=== PATIENT | female | born 1940 | race Caucasian/White ===

== ENCOUNTER 2016-10-13 17:16 | Inpatient (IN) | payer BC, MEDICARE ==
[~2016-10-13] VITALS: Ht 162.6 cm; Wt 58.1 kg
--- NOTE | 2016-10-13 17:41 | RAD ---
CT CODE STROKE HEAD WO Clinical indications: CODE STROKE PT LNK 16:30 FOUND APPROX 30 MINUTES ON FLOOR L FACIAL DROOP SLURRED SPEECH DROOLING FOUND ON GROUND. LAST NORMAL WAS `1630. COMPARISON: June 28, 2012. Technique: Noncontrast axial cross sectional scanning of the head was performed. PQRS compliance Statement One or more of the following individualized dose reduction techniques were utilized for this study: 1. Automated exposure control 2. Adjustment of the mA and/or kV according to patient size 3. Use of iterative reconstruction technique Findings: No acute intracranial hemorrhage or midline shift or mass-effect or hydrocephalus or extra-axial fluid collection is seen. 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 There is a new cortical infarct of the posterior right frontal lobe near the occipital lobe junction. However this demonstrates a black wedge-shaped appearance and therefore is an old infarct that has occurred since the previous study in 2012. There are old infarcts of the posterior medial aspect of the left cerebellum and the posterior lateral left cerebellum. These were seen previously. There is some mild chronic periventricular white matter hypodensity consistent with chronic small vessel ischemic disease in this age group. There is an old lacunar infarct in the posterior aspect of the right basal ganglia. No skull fracture or pneumocephalus is seen. No opacification of the mastoid sinuses or the paranasal sinuses is seen. The maxillary sinuses are not completely seen in this study. Impression: No acute intracranial hemorrhage is seen. Old ischemic disease as discussed above. Note-this critical result was called to the emergency room physician at 5:37 PM on October 13, 2016. Electronically signed by: Tanner Vasquez MD (10/13/2016 5:39 PM)
[2016-10-13] MEDS ORDERED: LABETALOL 20 MG/4 ML DISP.SYRIN. IVP ONE (17:45)
[2016-10-13 18:01] LABS: BASO # 0.1 x10^3/uL (0.0-0.2); BASO % 1 % (0-3); EOS % 2 % (0-3); HEMATOCRIT 40.1 % (36.0-47.0); HEMOGLOBIN 13.5 g/dL (12.0-15.5); LYMPH # 2.4 x10^3/uL (1.0-4.8); LYMPH % 33 % (24-48); MEAN CORPUSCULAR HEMOGLOBIN 32 pg (25-35); MEAN CORPUSCULAR HGB CONC 34 g/dL (31-37); MEAN CORPUSCULAR VOLUME 95 fL (79-100); MONO % 9 % (0-9); NEUT % 55 % (31-73); PLATELET COUNT 234 x10^3/uL (140-400); RED BLOOD COUNT 4.23 x10^6/uL (3.50-5.40); RED CELL DISTRIBUTION WIDTH 13.7 % (11.5-14.5); WHITE BLOOD COUNT 7.2 x10^3/uL (4.0-11.0)
[2016-10-13 18:10] LABS: PROTHROMBIN TIME PATIENT 12.9 SEC (11.7-14.0)
[2016-10-13 18:12] LABS: CALCIUM 8.7 mg/dL (8.5-10.1); CREATININE 1.1 mg/dL (0.6-1.0); GFR 48.2; POTASSIUM 4.1 mmol/L (3.5-5.1)
[2016-10-13 18:18] LABS: ALBUMIN 3.6 g/dL (3.4-5.0); ALBUMIN/GLOBULIN RATIO 1.2 (1.0-1.7); TOTAL BILIRUBIN 0.4 mg/dL (0.2-1.0); TOTAL PROTEIN 6.7 g/dL (6.4-8.2)
--- NOTE | 2016-10-13 18:19 | PHYS DOC ---
Past Medical History Past Medical History: CAD, CVA Additional Past Medical Histor: cataracts, glaucoma Additional Past Surgical Histo: Heart Valve Alcohol Use: Occasionally Drug Use: None Adult General Chief Complaint Chief Complaint: NEURO SYMPTOMS/DEFICITS [facility] HPI Patient is a 76 year old female who presents with left sided weakness and slurred speech starting at 1630 today. She was awake and cooking when it occurred. Family states she was leaning to the left and needed assistance walking. She walks unassisted at baseline. Family noted she was well prior. She denies headache, vision changes, dizziness, chest pain, dyspnea, back pain, abdominal pain, nausea or vomiting, tingling, numbness, fever or chills. Review of Systems Review of Systems Constitutional: Denies fever or chills [] Eyes: Denies change in visual acuity, redness, or eye pain [] HENT: Denies nasal congestion or sore throat [] Respiratory: Denies cough or shortness of breath [] Cardiovascular: No additional information not addressed in HPI [] GI: Denies abdominal pain, nausea, vomiting, bloody stools or diarrhea [] : Denies dysuria or hematuria [] Musculoskeletal: Denies back pain or joint pain [] Integument: Denies rash or skin lesions [] Neurologic: Denies headache or sensory changes [] Endocrine: Denies polyuria or polydipsia [] Current Medications Current Medications Current Medications Medications (Trade) Dose Ordered Sig/[facility] Start Time Stop Time Status Last Admin Dose Admin Labetalol HCl (Normodyne) 10 mg 1X ONCE 10/13/16 17:45 10/13/16 17:46 DC 10/13/16 17:55 10 MG Allergies Allergies Allergies Coded Allergies Type Severity Reaction Last Updated Verified No Known Drug Allergies 10/13/16 No Physical Exam Physical Exam Constitutional: Well developed, well nourished, no acute distress, non-toxic appearance. [] HENT: Normocephalic, atraumatic, bilateral external ears normal, oropharynx moist, no oral exudates, nose normal. [] Eyes: PERRLA, EOMI. [] Neck: Normal range of motion, supple. [] Cardiovascular:Heart rate regular rhythm [] Lungs & Thorax: Bilateral breath sounds clear to auscultation [] Abdomen: Bowel sounds normal, soft, no tenderness. [] Skin: Warm, dry, no erythema, no rash. [] Back: Normal range of motion. [] Extremities: No tenderness, ROM intact, no edema. [] Neurologic: Alert and oriented X 3, normal sensory function, no focal deficits noted. Has significant weakness to left lower face with flat nasolabial fold, mild left leg drift. Otherwise intact cranial nerves and normal strength. No past pointing. [] Psychologic: Affect normal, judgement normal, mood normal. [] Current Patient Data Vital Signs Vital Signs Date Time Temp Pulse Resp B/P (MAP) Pulse Ox O2 Delivery O2 Flow Rate FiO2 10/13/16 18:12 62 18 160/75 (103) 97 10/13/16 17:31 98.2 Room Air 98.2 Lab Values Laboratory Tests Test 10/13/16 17:31 10/13/16 17:35 Glucose (Fingerstick) 100 mg/dL (70-99) H White Blood Count 7.2 x10^3/uL (4.0-11.0) Red Blood Count 4.23 x10^6/uL (3.50-5.40) Hemoglobin 13.5 g/dL (12.0-15.5) Hematocrit 40.1 % (36.0-47.0) Mean Corpuscular Volume 95 fL (79-100) Mean Corpuscular Hemoglobin 32 pg (25-35) Mean Corpuscular Hemoglobin Concent 34 g/dL (31-37) Red Cell Distribution Width 13.7 % (11.5-14.5) Platelet Count 234 x10^3/uL (140-400) Neutrophils (%) (Auto) 55 % (31-73) Lymphocytes (%) (Auto) 33 % (24-48) Monocytes (%) (Auto) 9 % (0-9) Eosinophils (%) (Auto) 2 % (0-3) Basophils (%) (Auto) 1 % (0-3) Neutrophils # (Auto) 4.0 x10^3uL (1.8-7.7) Lymphocytes # (Auto) 2.4 x10^3/uL (1.0-4.8) Monocytes # (Auto) 0.7 x10^3/uL (0.0-1.1) Eosinophils # (Auto) 0.2 x10^3/uL (0.0-0.7) Basophils # (Auto) 0.1 x10^3/uL (0.0-0.2) Sodium Level 139 mmol/L (136-145) Potassium Level 4.1 mmol/L (3.5-5.1) Chloride Level 103 mmol/L (98-107) Carbon Dioxide Level 29 mmol/L (21-32) Anion Gap 7 (6-14) Blood Urea Nitrogen 28 mg/dL (7-20) H Creatinine 1.1 mg/dL (0.6-1.0) H Estimated GFR (Cockcroft-Gault) 48.2 BUN/Creatinine Ratio 25 (6-20) H Glucose Level 104 mg/dL (70-99) H Calcium Level 8.7 mg/dL (8.5-10.1) Total Bilirubin 0.4 mg/dL (0.2-1.0) Aspartate Amino Transferase (AST) 22 U/L (15-37) Alanine Aminotransferase (ALT) 20 U/L (14-59) Alkaline Phosphatase 80 U/L (46-116) Total Protein 6.7 g/dL (6.4-8.2) Albumin 3.6 g/dL (3.4-5.0) Albumin/Globulin Ratio 1.2 (1.0-1.7) Laboratory Tests 10/13/16 17:35 Laboratory Tests 10/13/16 17:35 EKG Interpretation Time: EKG as interpreted by me as normal sinus rhythm, rate 68, no ST-T changes, normal intervals, no ectopy Radiology/Procedures Radiology/Procedures CT head without contrast Impression: No acute intracranial hemorrhage is seen. Old ischemic disease as discussed above. Note-this critical result was called to the emergency room physician at 5:37 PM on October 13, 2016. Electronically signed by: Tanner Vasquez MD (10/13/2016 5:39 PM) Course & Med Decision Making Course & Med Decision Making Pertinent Labs and Imaging studies reviewed. (See chart for details) NIHSS of 3 (2 for left facial droop, 1 for left leg drift). Imaging and laboratory evaluation are nonacute. Her symptoms are beginning to improve, with improvement in nasolabial fold prominence and minimal drift of left lower extremity. She has no new symptoms. She is ambulatory with steady gait and feels normal. Her family states that her gait appears normal as well. Discussed case with Dr. Ayon, who recommends against TPA due to improving symptoms. She passed swallow study. She will be admitted for further workup. Discussed case with Dr. Guevara, who will admit. Bubba Disclaimer Dragon Disclaimer This electronic medical record was generated, in whole or in part, using a voice recognition dictation system. Departure Departure Impression: Primary Impression: Acute left-sided weakness Disposition: ADMITTED INPATIENT Condition: STABLE Юлия PEREA MD Oct 13, 2016 18:19
[2016-10-13] MEDS ORDERED: ACETAMINOPHEN 325 MG TABLET. PO PRN ×2 (18:45→19:00)
[2016-10-13] MEDS ORDERED: LABETALOL 20 MG/4 ML DISP.SYRIN. IVP PRN (18:45)
[2016-10-13] MEDS ORDERED: ONDANSETRON PF 4 MG/2 ML VIAL. IV PRN ×2 (18:45→19:00)
[2016-10-13] MEDS ORDERED: ACETAMINOPHEN 650 MG SUPP.RECT. PR PRN (19:00)
[2016-10-13] MEDS ORDERED: LABETALOL 20 MG/4 ML DISP.SYRIN. IV PRN (19:00)
[2016-10-13] MEDS ORDERED: 0.9 % SODIUM CHLORIDE 10 ML DISP.SYRIN. IV PRN (19:00)
[2016-10-13] MEDS ORDERED: ASPIRIN 325 MG TABLET PO ONE (19:00)
[2016-10-13] MEDS ORDERED: ENOXAPARIN 40 MG/0.4 ML SYRINGE. SQ SCH (20:00)
[2016-10-13 20:49] VITALS: BP 175/84
[2016-10-13] MEDS: SIMVASTATIN 40 MG TABLET. PO SCH (21:40)
[2016-10-13] MEDS: IV NORMAL SALINE 1000ML BAG 1,000 ML IV SCH (21:40)
[2016-10-13] MEDS ORDERED: ATEN25TA PO (22:21)
[2016-10-13] MEDS ORDERED: BROM3DRO OS (22:21)
[2016-10-13] MEDS ORDERED: CIPROFLOXACIN OS (22:21)
[2016-10-13] MEDS ORDERED: PRED5DRO16 OS (22:21)
[2016-10-13 23:24] VITALS: BP 170/64
--- NOTE | 2016-10-13 23:36 | PDOC1 ---
History and Physical Current Problem List Problem List Problems Medical Problems: (1) Acute left-sided weakness Status: Acute Current Medications Current Medications Current Medications Medications (Trade) Dose Ordered Sig/[facility] Start Time Stop Time Status Last Admin Dose Admin Acetaminophen (Acetaminophen Supp) 650 mg PRN Q6HRS PRN 10/13/16 19:00 Acetaminophen (Tylenol) 650 mg PRN Q6HRS PRN 10/13/16 19:00 Aspirin (Darby Aspirin) 325 mg 1X ONCE 10/13/16 19:00 10/13/16 19:01 DC 10/13/16 19:00 325 MG Aspirin (Ecotrin) 325 mg [id number] 10/14/16 08:00 Enoxaparin Sodium (Lovenox 40mg Syringe) 40 mg Q24H 10/13/16 20:00 10/13/16 21:40 40 MG Labetalol HCl (Normodyne) 10 mg PRN Q10MIN PRN 10/13/16 19:00 Ondansetron HCl (Zofran) 4 mg PRN Q6HRS PRN 10/13/16 19:00 Simvastatin (Zocor) 40 mg QHS 10/13/16 21:00 10/13/16 21:40 40 MG Sodium Chloride 1,000 ml @ 100 mls/hr Q10H 10/13/16 18:57 10/13/16 21:40 100 MLS/HR Sodium Chloride (Normal Saline Flush) 3 ml QSHIFT PRN 10/13/16 19:00 Allergies Allergies Allergies Coded Allergies Type Severity Reaction Last Updated Verified No Known Drug Allergies 10/13/16 No ROS Review of System CONSTITUTIONAL: No fever or chills EYES: No recent changes SKIN: No rash or itching CARDIOVASCULAR: No chest pain, syncope, palpitations, or edema RESPIRATORY: No SOB or cough GASTROINTESTINAL: No nausea, vomiting or abdominal pain NEUROLOGICAL: No headaches or weakness ENDOCRINE: No cold or heat intolerance GENITOURINARY: No urgency or frequency of urination MUSCULOSKELETAL: No back pain or joint pain LYMPHATICS: No enlarged lymph nodes PSYCHIATRIC: No anxiety or depression Physical Exam Physical Exam GEN.: No apparent distress. Alert and oriented. HEENT: Head is normocephalic, atraumatic NECK: Supple. LUNGS: Clear to auscultation. HEART: RRR, S1, S2 present. Peripheral pulses intact ABDOMEN: Soft, nontender. Positive bowel sounds. EXTREMITIES: Without any cyanosis. NEUROLOGIC: Normal speech, normal tone PSYCHIATRIC: Normal affect, normal mood. SKIN: No ulcerations Vitals Vitals Vital Signs Date Time Temp Pulse Resp B/P (MAP) Pulse Ox O2 Delivery O2 Flow Rate FiO2 10/13/16 23:24 98.3 67 18 170/64 (99) 98 Room Air 98.3 Labs Labs Laboratory Tests Test 10/13/16 17:31 10/13/16 17:35 Glucose (Fingerstick) 100 mg/dL (70-99) White Blood Count 7.2 x10^3/uL (4.0-11.0) Red Blood Count 4.23 x10^6/uL (3.50-5.40) Hemoglobin 13.5 g/dL (12.0-15.5) Hematocrit 40.1 % (36.0-47.0) Mean Corpuscular Volume 95 fL (79-100) Mean Corpuscular Hemoglobin 32 pg (25-35) Mean Corpuscular Hemoglobin Concent 34 g/dL (31-37) Red Cell Distribution Width 13.7 % (11.5-14.5) Platelet Count 234 x10^3/uL (140-400) Neutrophils (%) (Auto) 55 % (31-73) Lymphocytes (%) (Auto) 33 % (24-48) Monocytes (%) (Auto) 9 % (0-9) Eosinophils (%) (Auto) 2 % (0-3) Basophils (%) (Auto) 1 % (0-3) Neutrophils # (Auto) 4.0 x10^3uL (1.8-7.7) Lymphocytes # (Auto) 2.4 x10^3/uL (1.0-4.8) Monocytes # (Auto) 0.7 x10^3/uL (0.0-1.1) Eosinophils # (Auto) 0.2 x10^3/uL (0.0-0.7) Basophils # (Auto) 0.1 x10^3/uL (0.0-0.2) Prothrombin Time 12.9 SEC (11.7-14.0) Prothromb Time International Ratio 1.0 (0.8-1.1) Activated Partial Thromboplast Time 24 SEC (24-38) Sodium Level 139 mmol/L (136-145) Potassium Level 4.1 mmol/L (3.5-5.1) Chloride Level 103 mmol/L (98-107) Carbon Dioxide Level 29 mmol/L (21-32) Anion Gap 7 (6-14) Blood Urea Nitrogen 28 mg/dL (7-20) Creatinine 1.1 mg/dL (0.6-1.0) Estimated GFR (Cockcroft-Gault) 48.2 BUN/Creatinine Ratio 25 (6-20) Glucose Level 104 mg/dL (70-99) Calcium Level 8.7 mg/dL (8.5-10.1) Total Bilirubin 0.4 mg/dL (0.2-1.0) Aspartate Amino Transf (AST/SGOT) 22 U/L (15-37) Alanine Aminotransferase (ALT/SGPT) 20 U/L (14-59) Alkaline Phosphatase 80 U/L (46-116) Total Protein 6.7 g/dL (6.4-8.2) Albumin 3.6 g/dL (3.4-5.0) Albumin/Globulin Ratio 1.2 (1.0-1.7) Laboratory Tests Test 10/13/16 17:31 10/13/16 17:35 Glucose (Fingerstick) 100 mg/dL (70-99) White Blood Count 7.2 x10^3/uL (4.0-11.0) Red Blood Count 4.23 x10^6/uL (3.50-5.40) Hemoglobin 13.5 g/dL (12.0-15.5) Hematocrit 40.1 % (36.0-47.0) Mean Corpuscular Volume 95 fL (79-100) Mean Corpuscular Hemoglobin 32 pg (25-35) Mean Corpuscular Hemoglobin Concent 34 g/dL (31-37) Red Cell Distribution Width 13.7 % (11.5-14.5) Platelet Count 234 x10^3/uL (140-400) Neutrophils (%) (Auto) 55 % (31-73) Lymphocytes (%) (Auto) 33 % (24-48) Monocytes (%) (Auto) 9 % (0-9) Eosinophils (%) (Auto) 2 % (0-3) Basophils (%) (Auto) 1 % (0-3) Neutrophils # (Auto) 4.0 x10^3uL (1.8-7.7) Lymphocytes # (Auto) 2.4 x10^3/uL (1.0-4.8) Monocytes # (Auto) 0.7 x10^3/uL (0.0-1.1) Eosinophils # (Auto) 0.2 x10^3/uL (0.0-0.7) Basophils # (Auto) 0.1 x10^3/uL (0.0-0.2) Prothrombin Time 12.9 SEC (11.7-14.0) Prothromb Time International Ratio 1.0 (0.8-1.1) Activated Partial Thromboplast Time 24 SEC (24-38) Sodium Level 139 mmol/L (136-145) Potassium Level 4.1 mmol/L (3.5-5.1) Chloride Level 103 mmol/L (98-107) Carbon Dioxide Level 29 mmol/L (21-32) Anion Gap 7 (6-14) Blood Urea Nitrogen 28 mg/dL (7-20) Creatinine 1.1 mg/dL (0.6-1.0) Estimated GFR (Cockcroft-Gault) 48.2 BUN/Creatinine Ratio 25 (6-20) Glucose Level 104 mg/dL (70-99) Calcium Level 8.7 mg/dL (8.5-10.1) Total Bilirubin 0.4 mg/dL (0.2-1.0) Aspartate Amino Transf (AST/SGOT) 22 U/L (15-37) Alanine Aminotransferase (ALT/SGPT) 20 U/L (14-59) Alkaline Phosphatase 80 U/L (46-116) Total Protein 6.7 g/dL (6.4-8.2) Albumin 3.6 g/dL (3.4-5.0) Albumin/Globulin Ratio 1.2 (1.0-1.7) VTE Prophylaxis Ordered VTE Prophylaxis Devices: Yes VTE Pharmacological Prophylaxi: Yes MONICO CASTAÑEDA MD Oct 13, 2016 23:36
[2016-10-14] VITALS (7 sets, daily range): BP systolic 74–202; BP diastolic 74–95
--- NOTE | 2016-10-14 00:27 | HP ---
ADMIT DATE: 10/13/2016 CHIEF COMPLAINT: Left-sided facial droop and weakness. HISTORY OF PRESENT ILLNESS: This is a 76-year-old female patient with prior history of TIA and CVA, presented to the ER with complaints of left-sided facial droop and weakness. The patient's daughter noted that she is having drooping of her left sided face with weakness and difficulty to walk. The patient leaning towards left side. Symptoms started 1630 hours today while she was cooking. She was requiring some assistance to walk. Family were concerned about stroke and brought her to the hospital. As per the ER, the patient does not make any criteria as her symptoms completely resolved at the time of her arrival to the Emergency Room. At the time of my examination, the patient did not have any facial weakness. I saw her in the ER. No weakness noted. No neurological deficits seen. PAST MEDICAL HISTORY: CVA, hypertension, heart valve surgery, cataract, glaucoma, coronary artery disease. PERSONAL HISTORY: No smoking, no alcohol, no drug abuse. FAMILY HISTORY: Heart diseases. ALLERGIES: NKDA. REVIEW OF SYSTEMS: CONSTITUTIONAL: No fever or chills. EYES: No recent vision changes. SKIN: No rash or itching. CARDIOVASCULAR: No chest pain, syncope, palpitations or edema. RESPIRATORY: No shortness of breath, cough. GASTROINTESTINAL: No nausea, vomiting, diarrhea or abdominal pain. NEUROLOGICAL: No headache, paralysis. ENDOCRINOLOGIC: No cold or heat intolerance. GENITOURINARY: No burning with urination, no urgency. MUSCULOSKELETAL: No back pain or joint pain. LYMPHATICS: No enlarged nodes. PSYCHIATRIC: No anxiety or depression. PHYSICAL EXAM: GENERAL: No apparent distress. HEENT: Head normocephalic, atraumatic. NECK: Supple. LUNGS: Clear to auscultation. HEART: Regular rate and rhythm; S1, S2 present; pulses intact. ABDOMEN: Soft and positive bowel sounds. EXTREMITIES: No cyanosis or edema. NEUROLOGIC: Normal speech and normal tone; alert and oriented. PSYCHIATRIC: Normal affect, normal mood. SKIN: No ulceration. LABORATORY FINDINGS: CBC within normal limits. Chemistry: Creatinine is 1.1, BUN is 28, sodium 139, potassium 4.1, chloride ____, bicarb 29. IMAGING STUDIES: CT of the head, no acute process seen. Old ischemic disease is seen. ASSESSMENT: 1. Cerebrovascular accident symptoms. 2. Hypertension. 3. Prior history of cerebrovascular accident. 4. Coronary artery disease. PLAN: 1. The patient has been admitted to the hospital for further workup and Neurology has been consulted. She will get an echocardiogram and carotid Doppler with MRI. 2. Physical therapy, occupational therapy and frequent Neurochecks as per protocol. 3. Continue monitor on telemetry. 4. Supportive care. 5. Speech therapy. 6. Monitor labs in a.m. MONICO CASTAÑEDA MD DR: NAILA/chari JOB#: [id number] / [id number] SALLIE
--- NOTE | 2016-10-14 04:25 | ACF ---
Admission Forms Criteria TELEMETRY CARE Telemetry Admission Guidelines (Place 'X' for any and all applicable criteria): Admission to telemetry [A] may be indicated for ANY ONE of the following(1)(2)(3 )(4)(5): [ ]I. Cardiac disease, including ANY ONE of the following (9)(10)(11)(12)(13 ): [ ]a) Postacute ID [ ]b) Low-risk patients with ST-segment elevation ID who have undergone successful percutaneous coronary intervention [ ]c) Unstable angina [ ]d) Suspected ID (until it is ruled out) [ ]e) Post cardiac surgery (first 48 to 72 hours unless complications occur) [ ]f) Acute arrhythmias (including significant tachycardia or bradycardia) [B] [ ]g) Firing of an implantable cardioverter defibrillator [C] [ ]h) Suspected pacemaker or implantable cardioverter defibrillator malfunction (10) [ ]i) New administration or adjustment of an antiarrhythmic drug [D ] [ ]j) Child admitted for acute congestive heart failure [ ]j) Long QT syndrome [ ]k) Advanced heart block (eg, second-degree Mobitz type II, third- degree heart block) [ ]l) Acute myocarditis or pericarditis [ ]m) Short-term (ambulatory or inpatient) monitoring after a cardiac procedure as indicated by ANY ONE of the following [E]: [ ]i) Electrophysiologic studies [ ]ii) Percutaneous coronary intervention with stent placement [ ]iii) Pacemaker placement with cardiac conduction defect [ ]iv) Implantable cardiac defibrillator placement [ ]II. Drug overdose or poisoning with substance that causes arrhythmias or QT prolongation (eg, phenothiazines, sympathomimetic agents, cyclic antidepressants, digitalis, antiarrhythmic drugs)(15) [ ]III. Short-term (ambulatory or inpatient) monitoring after therapeutic or diagnostic procedure requiring conscious sedation or anesthesia (eg, endoscopy, elective cardioversion) [X]IV. Acute cerebrovascular even[F](18) [ ]V. Massive blood transfusion (eg, at least 10 units of packed red blood cells in 24 hours) [ ]. Variceal bleeding after endoscopy, sclerotherapy, or IV vasopressin [ ]VII. Uncorrected electrolyte abnormalities associated with an increased risk of dangerous arrhythmia [G]; examples include [ ]a) Hyperkalemia with attributable ECG changes [ ]b) Potassium greater than 6.5 mmol/L (mEq/L) in a patient without history of chronic renal disease [ ]c) Prolonged QT attributed to hypokalemia, hypomagnesemia, or hypocalcemia [ ]VIII.Unexplained syncope or other neurologic event suspected of being due to arrhythmia due to a finding that increases risk; examples include(19)(20)(21): [ ]a) High-risk ECG findings (eg, bifascicular block, bradycardia, abnormal QT interval, ventricular pre- excitation) [ ]b) History of previous syncope due to arrhythmia [ ]c) Abnormal ventricular function (eg, reduced ejection fraction ) [ ]d) Exertional or supine syncope [ ]e) Concerning syncope characteristics (eg, sudden loss of consciousness without prodrome) [ ]f) Family history of sudden [ ]g) Use of arrhythmogenic medication [ ]h) Suspected cardiac ischemia [ ]i) Known channelopathy (eg, long QT syndrome, Brugada syndrome, or catecholaminergic paroxysmal ventricular tachycardia) [ ]j) Known structural heart disease (eg, hypertrophic cardiomyopathy , severe valvular disease) [ ]k) Palpitations preceding syncope The original [employer] content created by [employer] has been revised. The portions of the content which have been revised are identified through the use of italic text or in bold, and [facility] has neither reviewed nor approved the modified material. All other unmodified content is copyright [employer]. Please see references footnoted in the original [employer] edition 2016 Admission Criteria Met?: Yes SAMANTHA HERNANDEZ Oct 14, 2016 04:25
[2016-10-14] MEDS: DEXAMETHASONE 0.1% OPHTH SOLUTION 5ML BOTTLE. OS SCH ×4 (05:54→07:31)
[2016-10-14] MEDS: IV NORMAL SALINE 1000ML BAG 1,000 ML IV SCH ×2 (05:54→15:30)
--- NOTE | 2016-10-14 06:39 | EKG ---
[facility] [address] [place] [address] Test Date: 2016-10-13 Test Time: 17:39:18 Pat Name: LARISSA ZAIDI Department: Room: 4 1 Gender: F Project Development Engineer: : [id number] Requested By: Юлия PEREA Order Number: [id number] Reading MD: Nadja Rice Measurements Intervals [place] Rate: 68 P: -56 WI: 126 QRS: -25 QRSD: 90 T: 43 QT: 392 QTc: 417 Interpretive Statements SINUS RHYTHM LEFTWARD AXIS INCOMPLETE RIGHT BUNDLE BRANCH BLOCK QRS(T) CONTOUR ABNORMALITY CONSIDER ANTEROSEPTAL MYOCARDIAL DAMAGE Electronically Signed On 10-15-2016 19:10:01 CDT by Nadja Rice
[2016-10-14] MEDS: KETOROLAC TROMETHAMINE 0.5% OPHTH SOLUTION 3ML BOTTLE. OS SCH ×3 (07:24→07:31)
[2016-10-14] MEDS: ATENOLOL 25 MG TABLET. PO SCH (07:27)
[2016-10-14] MEDS ORDERED: ASPIRIN ENTERIC COATED 325 MG TABLET.DR. PO SCH (08:00)
[2016-10-14] MEDS ORDERED: LATA2.5D3 EACHEYE (09:17)
[2016-10-14] MEDS ORDERED: DORZ10DR7 EACHEYE (09:18)
[2016-10-14] MEDS: DORZOLAMIDE/TIMOLOL 2%/0.5% OPHTH SOLUTION 10ML BOTTLE. OU SCH ×2 (09:23→19:43)
--- NOTE | 2016-10-14 10:55 | PDOC2 ---
NEUROLOGY CONSULT Date of Admission Date of Admission DATE: 10/14/16 TIME: 10:48 Reason for Consult Reason for Consult: Stroke symptoms Referring Physician Referring Physician: Dr. Joyner Source Source: Caregiver, Chart review, Patient History of Present Illness History of Present Illness The patient is a 76-year-old right-hand female whose daughter noticed having left him in paresis and dysarthria yesterday at about 5 PM. I discussed the case with Dr. Xiong and by the time the patient was in the emergency department , symptoms were improving. Gait was normal. Therefore, we decided to hold off on tissue plasminogen activator. The patient has a history of stroke 4 years ago from which she made a full recovery. It happened after cardiac valve surgery. She feels fine this morning. Past Medical History Cardiovascular: CAD, Other ( cardiac valve disease) CENTRAL NERVOUS SYSTEM: CVA ENT: Other (Glaucoma) Past Surgical History Past Surgical History: Cataract Removal, Other ( mitral valve repair) Family History Family History: Cancer Social History Social History , no tobacco or alcohol Current Medications Current Medications Current Medications Labetalol HCl (Normodyne) 10 mg 1X ONCE IVP Last administered on 10/13/16 17: 55; Start 10/13/16 at 17:45; Stop 10/13/16 at 17:46; Status DC Aspirin ([place] Aspirin) 325 mg 1X ONCE PO Last administered on 10/13/16 19:00 ; Start 10/13/16 at 19:00; Stop 10/13/16 at 19:01; Status DC Ondansetron HCl (Zofran) 4 mg PRN Q8HRS PRN IV NAUSEA/VOMITING; Start 10/13/16 at 18:45; Stop 10/14/16 at 18:44 Acetaminophen (Tylenol) 650 mg PRN Q4HRS PRN PO FEVER; Start 10/13/16 at 18:45; Stop 10/14/16 at 18:44 Labetalol HCl (Normodyne) 10 mg PRN Q1HR PRN IVP HTN Last administered on 19:14; Start 10/13/16 at 18:45 Sodium Chloride (Normal Saline Flush) 3 ml QSHIFT PRN IV AFTER MEDS AND BLOOD DRAWS; Start 10/13/16 at 19:00 Sodium Chloride 1,000 ml @ 100 mls/hr Q10H IV Last administered on 10/14/16 05 :54; Start 10/13/16 at 18:57 Aspirin (Ecotrin) 325 mg DAILYWBKFT PO Last administered on 10/14/16 07:23; Start 10/14/16 at 08:00 Simvastatin (Zocor) 40 mg QHS PO Last administered on 10/13/16 21:40; Start 10/13/16 at 21:00 Labetalol HCl (Normodyne) 10 mg PRN Q10MIN PRN IV HYPERTENSION, SEE COMMENTS; Start 10/13/16 at 19:00 Acetaminophen (Tylenol) 650 mg PRN Q6HRS PRN PO FEVER; Start 10/13/16 at 19:00 Acetaminophen (Acetaminophen Supp) 650 mg PRN Q6HRS PRN OR FEVER; Start at 19:00 Ondansetron HCl (Zofran) 4 mg PRN Q6HRS PRN IV NAUSEA/VOMITING; Start 10/13/16 at 19:00 Enoxaparin Sodium (Lovenox 40mg Syringe) 40 mg Q24H SQ Last administered on 10/13 21:40; Start 10/13/16 at 20:00 Atenolol (Tenormin) 25 mg DAILY PO ; Start 10/14/16 at 09:00 Ketorolac Tromethamine (Acular) 1 drop QID OS Last administered on 10/14/16 07: 24; Start 10/14/16 at 09:00; Stop 10/14/16 at 09:15; Status DC Dexamethasone (Maxidex) 1 drop Q4HRS W/A OS Last administered on 10/14/16 07: 23; Start 10/14/16 at 06:00; Stop 10/14/16 at 09:14; Status DC Dorzolamide/ Timolol (Cosopt) 1 drop BID OU ; Start 10/14/16 at 10:00 Latanoprost (Xalatan) 1 drop QHS OU ; Start 10/14/16 at 21:00 Active Scripts Active Reported Dorzolamide-Timolol Eye Drops (Dorzolamide Hcl/Timolol Maleat) 10 Ml Drops 1 Drop EACHEYE BID Latanoprost 2.5 Ml Drops 1 Drop EACHEYE QHS Atenolol 25 Mg Tablet 25 Mg PO DAILY Allergies Allergies: Coded Allergies: No Known Drug Allergies (Unverified , 10/13/16) ROS Review of System Negative for fevers, chills, weight loss, shortness of breath, chest pain, indigestion, hematochezia, melena, dysuria. Full 14-point review systems is negative. Physical Exam Physical Examination PHYSICAL EXAMINATION: Vital signs: see above. General appearance is normal and in no acute distress. HEENT: Normocephalic and nontraumatic. Eyes, nose, ears, and throat are unremarkable. Neck is supple. No lymphadenopathy. No bruits are heard over the carotid artery. No crepitus. Cardiovascular: S1, S2, regular rate and rhythm. NEUROLOGICAL EXAMINATION: Mental Status Examination: Alert. Oriented to time, place, and person. Answers questions and follows commends. Pupils are equal round and reactive to light and accommodation. Funduscopic exam: No papilledema. Extraocular movements are intact. Visual field exam shows no defect on the direct confrontation. No motor or sensory deficits on the facial exam. Uvula in the midline and the soft palate elevated symmetrically. No deviation of the tongue to any direction. Gross hearing is normal. Shoulder shrug normal. Muscle tone is normal. Muscle strength is 5. Deep tendon reflexes are 2+ all around. Plantar reflex is with flexion response bilaterally. Reilkz-rh-gazp test performance is accurate. Tandem walk test is accurate. Alternative movements are accurate. Romberg test is negative. Gait is normal. Sensory exam shows no deficits. No cerebellar signs are elicited. Vitals VITALS Vital Signs Date Time Temp Pulse Resp B/P (MAP) Pulse Ox O2 Delivery O2 Flow Rate FiO2 10/14/16 08:00 Room Air 10/14/16 07:00 97.8 69 18 185/89 (121) 100 97.8 Labs Labs Laboratory Tests Test 10/13/16 17:31 10/13/16 17:35 10/14/16 02:50 Glucose (Fingerstick) 100 mg/dL (70-99) White Blood Count 7.2 x10^3/uL (4.0-11.0) Red Blood Count 4.23 x10^6/uL (3.50-5.40) Hemoglobin 13.5 g/dL (12.0-15.5) Hematocrit 40.1 % (36.0-47.0) Mean Corpuscular Volume 95 fL (79-100) Mean Corpuscular Hemoglobin 32 pg (25-35) Mean Corpuscular Hemoglobin Concent 34 g/dL (31-37) Red Cell Distribution Width 13.7 % (11.5-14.5) Platelet Count 234 x10^3/uL (140-400) Neutrophils (%) (Auto) 55 % (31-73) Lymphocytes (%) (Auto) 33 % (24-48) Monocytes (%) (Auto) 9 % (0-9) Eosinophils (%) (Auto) 2 % (0-3) Basophils (%) (Auto) 1 % (0-3) Neutrophils # (Auto) 4.0 x10^3uL (1.8-7.7) Lymphocytes # (Auto) 2.4 x10^3/uL (1.0-4.8) Monocytes # (Auto) 0.7 x10^3/uL (0.0-1.1) Eosinophils # (Auto) 0.2 x10^3/uL (0.0-0.7) Basophils # (Auto) 0.1 x10^3/uL (0.0-0.2) Prothrombin Time 12.9 SEC (11.7-14.0) Prothromb Time International Ratio 1.0 (0.8-1.1) Activated Partial Thromboplast Time 24 SEC (24-38) Sodium Level 139 mmol/L (136-145) Potassium Level 4.1 mmol/L (3.5-5.1) Chloride Level 103 mmol/L (98-107) Carbon Dioxide Level 29 mmol/L (21-32) Anion Gap 7 (6-14) Blood Urea Nitrogen 28 mg/dL (7-20) Creatinine 1.1 mg/dL (0.6-1.0) Estimated GFR (Cockcroft-Gault) 48.2 BUN/Creatinine Ratio 25 (6-20) Glucose Level 104 mg/dL (70-99) Calcium Level 8.7 mg/dL (8.5-10.1) Total Bilirubin 0.4 mg/dL (0.2-1.0) Aspartate Amino Transf (AST/SGOT) 22 U/L (15-37) Alanine Aminotransferase (ALT/SGPT) 20 U/L (14-59) Alkaline Phosphatase 80 U/L (46-116) Total Protein 6.7 g/dL (6.4-8.2) Albumin 3.6 g/dL (3.4-5.0) Albumin/Globulin Ratio 1.2 (1.0-1.7) Triglycerides Level 45 mg/dL (0-150) Cholesterol Level 220 mg/dL (0-200) LDL Cholesterol, Calculated 138 mg/dL (0-100) VLDL Cholesterol, Calculated 9 mg/dL (0-40) Non-HDL Cholesterol Calculated 147 mg/dL (0-129) HDL Cholesterol 73 mg/dL (40-60) Cholesterol/HDL Ratio 3.0 Laboratory Tests Test 10/13/16 17:31 10/13/16 17:35 10/14/16 02:50 Glucose (Fingerstick) 100 mg/dL (70-99) White Blood Count 7.2 x10^3/uL (4.0-11.0) Red Blood Count 4.23 x10^6/uL (3.50-5.40) Hemoglobin 13.5 g/dL (12.0-15.5) Hematocrit 40.1 % (36.0-47.0) Mean Corpuscular Volume 95 fL (79-100) Mean Corpuscular Hemoglobin 32 pg (25-35) Mean Corpuscular Hemoglobin Concent 34 g/dL (31-37) Red Cell Distribution Width 13.7 % (11.5-14.5) Platelet Count 234 x10^3/uL (140-400) Neutrophils (%) (Auto) 55 % (31-73) Lymphocytes (%) (Auto) 33 % (24-48) Monocytes (%) (Auto) 9 % (0-9) Eosinophils (%) (Auto) 2 % (0-3) Basophils (%) (Auto) 1 % (0-3) Neutrophils # (Auto) 4.0 x10^3uL (1.8-7.7) Lymphocytes # (Auto) 2.4 x10^3/uL (1.0-4.8) Monocytes # (Auto) 0.7 x10^3/uL (0.0-1.1) Eosinophils # (Auto) 0.2 x10^3/uL (0.0-0.7) Basophils # (Auto) 0.1 x10^3/uL (0.0-0.2) Prothrombin Time 12.9 SEC (11.7-14.0) Prothromb Time International Ratio 1.0 (0.8-1.1) Activated Partial Thromboplast Time 24 SEC (24-38) Sodium Level 139 mmol/L (136-145) Potassium Level 4.1 mmol/L (3.5-5.1) Chloride Level 103 mmol/L (98-107) Carbon Dioxide Level 29 mmol/L (21-32) Anion Gap 7 (6-14) Blood Urea Nitrogen 28 mg/dL (7-20) Creatinine 1.1 mg/dL (0.6-1.0) Estimated GFR (Cockcroft-Gault) 48.2 BUN/Creatinine Ratio 25 (6-20) Glucose Level 104 mg/dL (70-99) Calcium Level 8.7 mg/dL (8.5-10.1) Total Bilirubin 0.4 mg/dL (0.2-1.0) Aspartate Amino Transf (AST/SGOT) 22 U/L (15-37) Alanine Aminotransferase (ALT/SGPT) 20 U/L (14-59) Alkaline Phosphatase 80 U/L (46-116) Total Protein 6.7 g/dL (6.4-8.2) Albumin 3.6 g/dL (3.4-5.0) Albumin/Globulin Ratio 1.2 (1.0-1.7) Triglycerides Level 45 mg/dL (0-150) Cholesterol Level 220 mg/dL (0-200) LDL Cholesterol, Calculated 138 mg/dL (0-100) VLDL Cholesterol, Calculated 9 mg/dL (0-40) Non-HDL Cholesterol Calculated 147 mg/dL (0-129) HDL Cholesterol 73 mg/dL (40-60) Cholesterol/HDL Ratio 3.0 Images Images MRI brain: report pending, but there is a right frontal acute infarct CT head: Findings: No acute intracranial hemorrhage or midline shift or mass-effect or hydrocephalus or extra-axial fluid collection is seen. 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 There is a new cortical infarct of the posterior right frontal lobe near the occipital lobe junction. However this demonstrates a black wedge-shaped appearance and therefore is an old infarct that has occurred since the previous study in 2012. There are old infarcts of the posterior medial aspect of the left cerebellum and the posterior lateral left cerebellum. These were seen previously. There is some mild chronic periventricular white matter hypodensity consistent with chronic small vessel ischemic disease in this age group. There is an old lacunar infarct in the posterior aspect of the right basal ganglia. No skull fracture or pneumocephalus is seen. No opacification of the mastoid sinuses or the paranasal sinuses is seen. The maxillary sinuses are not completely seen in this study. Impression: No acute intracranial hemorrhage is seen. Old ischemic disease as discussed above. Echocardiogram and carotid Doppler's pending Assessment/Plan Assessment/Plan Impression: Right frontal infarct, suspected cardiac embolism. TPA was held because of rapid resolution of symptoms and indeed she has a normal exam now. Recommendations: Await echocardiogram, cardiology consultation Consideration for Eliquis or similar agent Rehabilitation screening Still may be able to go home later today. Discussed with family Thank you for letting me help with the patient's care. PRANEETH HIGH MD Oct 14, 2016 10:55
--- NOTE | 2016-10-14 11:22 | CARD ---
APPROVED REPORT EXAM: Two-dimensional and M-mode echocardiogram with Doppler and color Doppler. Other Information Quality : Good INDICATION CVA/TIA 2D DIMENSIONS RVDd2.7 (2.9-3.5cm)Left Atrium(2D)4.5 (1.6-4.0cm) IVSd0.8 (0.7-1.1cm)Aortic Root(2D)2.5 (2.0-3.7cm) LVDd5.2 (3.9-5.9cm)LVOT Diameter2.0 (1.8-2.4cm) PWd0.8 (0.7-1.1cm)LVDs3.7 (2.5-4.0cm) FS (%) 29.5 %SV72.8 ml LVEF(%)56.0 (>50%) Aortic Valve AoV Peak Jeb.122.2cm/sAoV VTI24.2cm AO Peak GR.6.0mmHgLVOT Peak Jeb.78.0cm/s LVOT VTI 15.50cmAO Mean GR.3mmHg HEMAL (VMAX)1.23mk7ZJR (VTI)1.93cm2 Mitral Valve MV E Yydhqyjx204.1cm/sMV E Peak Gr.129mmHg MV DECEL [id number] A Cuqynjxk98.3cm/s MV E Mean Gr.3mmHgMV XTI95op E/A Ratio1.6MVA (PHT)5.04cm2 TDI E/Lateral E'19.3E/Medial E'33.1 Tricuspid Valve TR P. Wddcrhwl987bd/sRAP CLVMRYHM4kgJg TR Peak Gr.58kiFxGTFO99naMd Pulmonary Vein S1 Tawozoik69.5cm/sD2 Cswyjcnw28.7cm/s LEFT VENTRICLE The left ventricle is normal size. There is normal left ventricular wall thickness. The left ventricu lar systolic function is normal and the ejection fraction is within normal range. The Ejection Fracti on is 55-60%. There is normal LV segmental wall motion. Transmitral Doppler flow pattern is Grade II- pseudonormal filling dynamics. RIGHT VENTRICLE The right ventricle is normal size. The right ventricular systolic function is normal. ATRIA The left atrium is mildly dilated. The right atrium size is normal. The interatrial septum is intact with no evidence for an atrial septal defect or patent foramen ovale as noted on 2-D or Doppler imagi ng. AORTIC VALVE The aortic valve is calcified but opens well. Doppler and Color Flow revealed no significant aortic r egurgitation. There is no significant aortic valvular stenosis. MITRAL VALVE Prior mitral ring is suspected. There is no evidence of mitral valve prolapse. There is no mitral elio ve stenosis. Doppler and Color-flow revealed mild to moderate mitral regurgitation. TRICUSPID VALVE The tricuspid valve is normal in structure and function. Doppler and Color Flow revealed moderate tri cuspid regurgitation. There is severe pulmonary hypertension. The PA pressure was estimated at 85 mmH g. There is no tricuspid valve stenosis. PULMONIC VALVE Doppler and Color Flow revealed trace pulmonic valvular regurgitation. There is no pulmonic valvular stenosis. GREAT VESSELS The aortic root is normal in size. The ascending aorta is normal in size. The IVC is normal in size a nd collapses >50% with inspiration. PERICARDIAL EFFUSION There is no evidence of significant pericardial effusion. Critical Notification Critical Value: No <Conclusion> The left ventricular systolic function is normal and the ejection fraction is within normal range. T he Ejection Fraction is 55-60%. There is normal LV segmental wall motion. Doppler and Color-flow revealed mild to moderate mitral regurgitation. Doppler and Color Flow revealed moderate tricuspid regurgitation. There is severe pulmonary hypertens ion. The PA pressure was estimated at 85 mmHg.
--- NOTE | 2016-10-14 11:25 | RAD ---
MR BRAIN HISTORY: LEFT SIDED WEAKNESS WITH FACIAL DROOP X 1 DAY, NO SX HX, PRIOR MRI, CALL REPORT TO [facility] AT [phone] TECHNIQUE: Axial diffusion weighted imaging was obtained. Additional sagittal T1, axial T1, axial FLAIR, and axial T2 weighted imaging of the brain was also performed. FINDINGS: There is restricted diffusion noted in the right MCA distribution within the right frontal lobe. A very small focus of restricted diffusion is seen in the right sensory gyrus in the parietal lobe as well. This is compatible with acute infarction. There is no acute intracranial hemorrhage. There is some local swelling but this does not result in midline shift or mass effect. There is encephalomalacia from old infarcts noted in the left frontal operculum, right parietal lobe, and left greater than right cerebellar hemispheres. Ventricles are normal in size. Basal cisterns are patent. Arterial flow voids the level of the skull base are maintained. Paranasal sinuses and mastoid air cells are clear. Globes and orbits are within normal limits. IMPRESSION: Acute right MCA distribution infarct mostly involving the right frontal lobe. No hemorrhage or mass effect. Old infarcts involving the left frontal operculum, right parietal lobe, and bilateral cerebellar hemispheres. Electronically signed by: Gavin Fang MD (10/14/2016 11:21 AM)
--- NOTE | 2016-10-14 11:30 | RAD ---
Carotid ultrasound, 10/14/2016: History: Facial droop, left-sided weakness Duplex evaluation of the carotid arteries in neck was performed including grayscale, color-flow and spectral Doppler analysis. There is moderate partially calcified atherosclerotic plaquing at the right carotid bifurcation. There is a velocity acceleration in the proximal right internal carotid artery up to 189 cm/s. The end-diastolic velocity at this level is 50 cm/s. The internal carotid to common carotid artery ratio is 4.2. The Doppler findings suggest narrowing in the 50-70% diameter range. The Doppler findings have worsened slightly since the 06/30/2012 study. There is a lesser degree of smooth plaquing at the left carotid bifurcation. No significant velocity acceleration is evident at the left carotid bifurcation to suggest a hemodynamically significant carotid stenosis. Antegrade flow is present in both vertebral arteries in the neck. IMPRESSION: 1. Moderate atherosclerotic plaquing at the right carotid bifurcation with underlying luminal narrowing in the proximal internal carotid artery in the 50-70% diameter range. The Doppler findings have worsened slightly since 2012. 2. Mild atherosclerotic plaquing at the left carotid bifurcation with underlying luminal narrowing in the 0-50% diameter range. Note: Stenosis calculations for CT, MRA and conventional angiography are based upon determination of the distal ICA diameter in accordance with the NASCET methodology. Stenosis calculations for Doppler studies are derived from validated velocity criteria which are known to correlate with NASCET methodology of determining stenosis.
--- NOTE | 2016-10-14 11:52 | PDOC ---
PROGRESS NOTES Chief Complaint Chief Complaint Right frontal infarct, suspected cardiac embolism. with L weakness, and prior h/ o: hypertension, heart valve surgery, cataract, glaucoma, coronary artery disease. History of Present Illness History of Present Illness Pt seen and examined VSS CECIL RN Reviewed notes and labs Vitals Vitals Vital Signs Date Time Temp Pulse Resp B/P (MAP) Pulse Ox O2 Delivery O2 Flow Rate FiO2 10/14/16 11:00 98.1 68 18 195/87 (123) 100 Room Air 98.1 Physical Exam General: Alert, Oriented X3 Heart: Regular rate, Normal S1, Normal S2 Lungs: Clear, Wheezing Abdomen: Normal bowel sounds Extremities: No clubbing, No cyanosis Skin: No rashes, No breakdown Labs LABS Laboratory Tests Test 10/13/16 17:31 10/13/16 17:35 10/14/16 02:50 Glucose (Fingerstick) 100 mg/dL (70-99) White Blood Count 7.2 x10^3/uL (4.0-11.0) Red Blood Count 4.23 x10^6/uL (3.50-5.40) Hemoglobin 13.5 g/dL (12.0-15.5) Hematocrit 40.1 % (36.0-47.0) Mean Corpuscular Volume 95 fL (79-100) Mean Corpuscular Hemoglobin 32 pg (25-35) Mean Corpuscular Hemoglobin Concent 34 g/dL (31-37) Red Cell Distribution Width 13.7 % (11.5-14.5) Platelet Count 234 x10^3/uL (140-400) Neutrophils (%) (Auto) 55 % (31-73) Lymphocytes (%) (Auto) 33 % (24-48) Monocytes (%) (Auto) 9 % (0-9) Eosinophils (%) (Auto) 2 % (0-3) Basophils (%) (Auto) 1 % (0-3) Neutrophils # (Auto) 4.0 x10^3uL (1.8-7.7) Lymphocytes # (Auto) 2.4 x10^3/uL (1.0-4.8) Monocytes # (Auto) 0.7 x10^3/uL (0.0-1.1) Eosinophils # (Auto) 0.2 x10^3/uL (0.0-0.7) Basophils # (Auto) 0.1 x10^3/uL (0.0-0.2) Prothrombin Time 12.9 SEC (11.7-14.0) Prothromb Time International Ratio 1.0 (0.8-1.1) Activated Partial Thromboplast Time 24 SEC (24-38) Sodium Level 139 mmol/L (136-145) Potassium Level 4.1 mmol/L (3.5-5.1) Chloride Level 103 mmol/L (98-107) Carbon Dioxide Level 29 mmol/L (21-32) Anion Gap 7 (6-14) Blood Urea Nitrogen 28 mg/dL (7-20) Creatinine 1.1 mg/dL (0.6-1.0) Estimated GFR (Cockcroft-Gault) 48.2 BUN/Creatinine Ratio 25 (6-20) Glucose Level 104 mg/dL (70-99) Calcium Level 8.7 mg/dL (8.5-10.1) Total Bilirubin 0.4 mg/dL (0.2-1.0) Aspartate Amino Transf (AST/SGOT) 22 U/L (15-37) Alanine Aminotransferase (ALT/SGPT) 20 U/L (14-59) Alkaline Phosphatase 80 U/L (46-116) Total Protein 6.7 g/dL (6.4-8.2) Albumin 3.6 g/dL (3.4-5.0) Albumin/Globulin Ratio 1.2 (1.0-1.7) Triglycerides Level 45 mg/dL (0-150) Cholesterol Level 220 mg/dL (0-200) LDL Cholesterol, Calculated 138 mg/dL (0-100) VLDL Cholesterol, Calculated 9 mg/dL (0-40) Non-HDL Cholesterol Calculated 147 mg/dL (0-129) HDL Cholesterol 73 mg/dL (40-60) Cholesterol/HDL Ratio 3.0 Review of Systems Review of Systems co weakness co hunger Assessment and Plan Assessmemt and Plan Problems Medical Problems: (1) Acute left-sided weakness Status: Acute Right frontal infarct, suspected cardiac embolism. with L weakness, and prior h /o: hypertension, heart valve surgery, cataract, glaucoma, coronary artery disease. Plan Eliqusist per Neuro Rehab eval PTOT Neuro consult Home meds Recheck labs Problems: Comment Review of Relevant I have reviewed the following items lisa (where applicable) has been applied. Labs Laboratory Tests Test 10/13/16 17:31 10/13/16 17:35 10/14/16 02:50 Glucose (Fingerstick) 100 mg/dL (70-99) White Blood Count 7.2 x10^3/uL (4.0-11.0) Red Blood Count 4.23 x10^6/uL (3.50-5.40) Hemoglobin 13.5 g/dL (12.0-15.5) Hematocrit 40.1 % (36.0-47.0) Mean Corpuscular Volume 95 fL (79-100) Mean Corpuscular Hemoglobin 32 pg (25-35) Mean Corpuscular Hemoglobin Concent 34 g/dL (31-37) Red Cell Distribution Width 13.7 % (11.5-14.5) Platelet Count 234 x10^3/uL (140-400) Neutrophils (%) (Auto) 55 % (31-73) Lymphocytes (%) (Auto) 33 % (24-48) Monocytes (%) (Auto) 9 % (0-9) Eosinophils (%) (Auto) 2 % (0-3) Basophils (%) (Auto) 1 % (0-3) Neutrophils # (Auto) 4.0 x10^3uL (1.8-7.7) Lymphocytes # (Auto) 2.4 x10^3/uL (1.0-4.8) Monocytes # (Auto) 0.7 x10^3/uL (0.0-1.1) Eosinophils # (Auto) 0.2 x10^3/uL (0.0-0.7) Basophils # (Auto) 0.1 x10^3/uL (0.0-0.2) Prothrombin Time 12.9 SEC (11.7-14.0) Prothromb Time International Ratio 1.0 (0.8-1.1) Activated Partial Thromboplast Time 24 SEC (24-38) Sodium Level 139 mmol/L (136-145) Potassium Level 4.1 mmol/L (3.5-5.1) Chloride Level 103 mmol/L (98-107) Carbon Dioxide Level 29 mmol/L (21-32) Anion Gap 7 (6-14) Blood Urea Nitrogen 28 mg/dL (7-20) Creatinine 1.1 mg/dL (0.6-1.0) Estimated GFR (Cockcroft-Gault) 48.2 BUN/Creatinine Ratio 25 (6-20) Glucose Level 104 mg/dL (70-99) Calcium Level 8.7 mg/dL (8.5-10.1) Total Bilirubin 0.4 mg/dL (0.2-1.0) Aspartate Amino Transf (AST/SGOT) 22 U/L (15-37) Alanine Aminotransferase (ALT/SGPT) 20 U/L (14-59) Alkaline Phosphatase 80 U/L (46-116) Total Protein 6.7 g/dL (6.4-8.2) Albumin 3.6 g/dL (3.4-5.0) Albumin/Globulin Ratio 1.2 (1.0-1.7) Triglycerides Level 45 mg/dL (0-150) Cholesterol Level 220 mg/dL (0-200) LDL Cholesterol, Calculated 138 mg/dL (0-100) VLDL Cholesterol, Calculated 9 mg/dL (0-40) Non-HDL Cholesterol Calculated 147 mg/dL (0-129) HDL Cholesterol 73 mg/dL (40-60) Cholesterol/HDL Ratio 3.0 Laboratory Tests Test 10/13/16 17:31 10/13/16 17:35 10/14/16 02:50 Glucose (Fingerstick) 100 mg/dL (70-99) White Blood Count 7.2 x10^3/uL (4.0-11.0) Red Blood Count 4.23 x10^6/uL (3.50-5.40) Hemoglobin 13.5 g/dL (12.0-15.5) Hematocrit 40.1 % (36.0-47.0) Mean Corpuscular Volume 95 fL (79-100) Mean Corpuscular Hemoglobin 32 pg (25-35) Mean Corpuscular Hemoglobin Concent 34 g/dL (31-37) Red Cell Distribution Width 13.7 % (11.5-14.5) Platelet Count 234 x10^3/uL (140-400) Neutrophils (%) (Auto) 55 % (31-73) Lymphocytes (%) (Auto) 33 % (24-48) Monocytes (%) (Auto) 9 % (0-9) Eosinophils (%) (Auto) 2 % (0-3) Basophils (%) (Auto) 1 % (0-3) Neutrophils # (Auto) 4.0 x10^3uL (1.8-7.7) Lymphocytes # (Auto) 2.4 x10^3/uL (1.0-4.8) Monocytes # (Auto) 0.7 x10^3/uL (0.0-1.1) Eosinophils # (Auto) 0.2 x10^3/uL (0.0-0.7) Basophils # (Auto) 0.1 x10^3/uL (0.0-0.2) Prothrombin Time 12.9 SEC (11.7-14.0) Prothromb Time International Ratio 1.0 (0.8-1.1) Activated Partial Thromboplast Time 24 SEC (24-38) Sodium Level 139 mmol/L (136-145) Potassium Level 4.1 mmol/L (3.5-5.1) Chloride Level 103 mmol/L (98-107) Carbon Dioxide Level 29 mmol/L (21-32) Anion Gap 7 (6-14) Blood Urea Nitrogen 28 mg/dL (7-20) Creatinine 1.1 mg/dL (0.6-1.0) Estimated GFR (Cockcroft-Gault) 48.2 BUN/Creatinine Ratio 25 (6-20) Glucose Level 104 mg/dL (70-99) Calcium Level 8.7 mg/dL (8.5-10.1) Total Bilirubin 0.4 mg/dL (0.2-1.0) Aspartate Amino Transf (AST/SGOT) 22 U/L (15-37) Alanine Aminotransferase (ALT/SGPT) 20 U/L (14-59) Alkaline Phosphatase 80 U/L (46-116) Total Protein 6.7 g/dL (6.4-8.2) Albumin 3.6 g/dL (3.4-5.0) Albumin/Globulin Ratio 1.2 (1.0-1.7) Triglycerides Level 45 mg/dL (0-150) Cholesterol Level 220 mg/dL (0-200) LDL Cholesterol, Calculated 138 mg/dL (0-100) VLDL Cholesterol, Calculated 9 mg/dL (0-40) Non-HDL Cholesterol Calculated 147 mg/dL (0-129) HDL Cholesterol 73 mg/dL (40-60) Cholesterol/HDL Ratio 3.0 Medications Current Medications Labetalol HCl (Normodyne) 10 mg 1X ONCE IVP Last administered on 10/13/16 17: 55; Start 10/13/16 at 17:45; Stop 10/13/16 at 17:46; Status DC Aspirin (Darby Aspirin) 325 mg 1X ONCE PO Last administered on 10/13/16 19:00 ; Start 10/13/16 at 19:00; Stop 10/13/16 at 19:01; Status DC Ondansetron HCl (Zofran) 4 mg PRN Q8HRS PRN IV NAUSEA/VOMITING; Start 10/13/16 at 18:45; Stop 10/14/16 at 18:44 Acetaminophen (Tylenol) 650 mg PRN Q4HRS PRN PO FEVER; Start 10/13/16 at 18:45; Stop 10/14/16 at 18:44 Labetalol HCl (Normodyne) 10 mg PRN Q1HR PRN IVP HTN Last administered on 19:14; Start 10/13/16 at 18:45 Sodium Chloride (Normal Saline Flush) 3 ml QSHIFT PRN IV AFTER MEDS AND BLOOD DRAWS; Start 10/13/16 at 19:00 Sodium Chloride 1,000 ml @ 100 mls/hr Q10H IV Last administered on 10/14/16 05 :54; Start 10/13/16 at 18:57 Aspirin (Ecotrin) 325 mg DAILYWBKFT PO Last administered on 10/14/16 07:23; Start 10/14/16 at 08:00 Simvastatin (Zocor) 40 mg QHS PO Last administered on 10/13/16 21:40; Start 10/13/16 at 21:00 Labetalol HCl (Normodyne) 10 mg PRN Q10MIN PRN IV HYPERTENSION, SEE COMMENTS; Start 10/13/16 at 19:00 Acetaminophen (Tylenol) 650 mg PRN Q6HRS PRN PO FEVER; Start 10/13/16 at 19:00 Acetaminophen (Acetaminophen Supp) 650 mg PRN Q6HRS PRN OH FEVER; Start at 19:00 Ondansetron HCl (Zofran) 4 mg PRN Q6HRS PRN IV NAUSEA/VOMITING; Start 10/13/16 at 19:00 Enoxaparin Sodium (Lovenox 40mg Syringe) 40 mg Q24H SQ Last administered on 10/13 21:40; Start 10/13/16 at 20:00 Atenolol (Tenormin) 25 mg DAILY PO ; Start 10/14/16 at 09:00 Ketorolac Tromethamine (Acular) 1 drop QID OS Last administered on 10/14/16 07: 24; Start 10/14/16 at 09:00; Stop 10/14/16 at 09:15; Status DC Dexamethasone (Maxidex) 1 drop Q4HRS W/A OS Last administered on 10/14/16 07: 23; Start 10/14/16 at 06:00; Stop 10/14/16 at 09:14; Status DC Dorzolamide/ Timolol (Cosopt) 1 drop BID OU ; Start 10/14/16 at 10:00 Latanoprost (Xalatan) 1 drop QHS OU ; Start 10/14/16 at 21:00 Active Scripts Active Reported Dorzolamide-Timolol Eye Drops (Dorzolamide Hcl/Timolol Maleat) 10 Ml Drops 1 Drop EACHEYE BID Latanoprost 2.5 Ml Drops 1 Drop EACHEYE QHS Atenolol 25 Mg Tablet 25 Mg PO DAILY Vitals/I & O Vital Sign - Last 24 Hours 10/13/16 10/13/16 10/13/16 10/13/16 17:31 17:55 18:12 18:28 Temp 98.2 98.2 Pulse 69 65 62 64 Resp 20 18 18 B/P (MAP) 192/94 (126) 187/90 160/75 (103) 177/78 (111) Pulse Ox 97 97 95 O2 Delivery Room Air Room Air 10/13/16 10/13/16 10/13/16 10/13/16 18:58 19:11 19:14 19:28 Pulse 68 64 65 64 Resp 18 16 16 B/P (MAP) 188/58 (101) 182/83 (116) 182/83 182/86 (118) Pulse Ox 95 95 92 O2 Delivery Room Air Room Air Room Air 10/13/16 10/13/16 10/13/16 10/13/16 19:58 20:49 22:35 23:24 Temp 97.9 98.3 97.9 98.3 Pulse 68 69 67 Resp 18 18 18 B/P (MAP) 163/115 (131) 175/84 (114) 170/64 (99) Pulse Ox 96 99 98 O2 Delivery Room Air Room Air Room Air Room Air 10/14/16 10/14/16 10/14/16 10/14/16 03:15 07:00 08:00 11:00 Temp 98.0 97.8 98.1 98.0 97.8 98.1 Pulse 66 69 68 Resp 18 B/P (MAP) 167/74 (105) 185/89 (121) 195/87 (123) Pulse Ox 99 100 100 O2 Delivery Room Air Room Air Room Air Room Air Intake and Output 10/13/16 10/13/16 10/14/16 15:00 23:00 07:00 Intake Total 0 ml Balance 0 ml JEFFERY AHN III DO Oct 14, 2016 11:52
[2016-10-14] MEDS ORDERED: CONTRAST GIVEN MC PRN (12:15)
[2016-10-14] MEDS ORDERED: IOHEXOL 300 MG/ML 75 ML VIAL IV ONE (12:15)
--- NOTE | 2016-10-14 14:19 | PDOC2 ---
GERMAINEPRAVIN GUILLERMO PUBLIC DEFENDER 10/14/16 1418: CARDIAC CONSULT DATE OF CONSULT Date of Consult DATE: 10/14/16 TIME: 14:11 REASON FOR CONSULT Reason for Consult: suspected cardioembolic event, history of MV repair REFERRING PHYSICIAN Referring Physician: Dr. Юлия Rice SOURCE Source: Caregiver (daughter), Chart review, Patient HISTORY OF PRESENT ILLNESS HISTORY OF PRESENT ILLNESS 76 year old female who was cooking dinner yesterday. Daughter arrived about 1700 and found her with dysarthria and drooling with drooping on left left face, arm and leg. Pushed/drug her into a chair. Attempts to walk result in patient drifting to the left. No tPa as symtpoms resolving by the time she arrived in ER. MRI with acute infarct in right MCA distribution involving right frontal lobe. EKG SR without acute changes. Malignant HTN POA. Denies CP, pressure, palpitations, edema. 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; MV repair - P2 posterior leaflet; annuloplasty with #28 mm Physio ring), Other (PFO reported on TOOTIE 05/2012 as well as MV vegetation) Pulmonary: No pertinent hx CENTRAL NERVOUS SYSTEM: CVA (2012) GI: No pertinent hx Heme/Onc: No pertinent hx Hepatobiliary: No pertinent hx Psych: No pertinent hx Musculoskeletal: Osteoarthritis, Other (diskitis - 2012; lumbar compression fracture - 2012; Duyputren's contracture right hand) Rheumatologic: No pertinent hx Infectious disease: Other (strep viridins - 2012; affecting MV) ENT: No pertinent hx, Other (glaucoma/cataracts) Renal/: No pertinent hx Endocrine: No pertinent hx Dermatology: No pertinent hx PAST SURGICAL HISTORY Past Surgical History see also PMH Past Surgical History: Appendectomy FAMILY HISTORY Family History: Stroke SOCIAL HISTORY Smoke: No ALCOHOL: none Drugs: None Lives: with Family CURRENT MEDICATIONS CURRENT MEDICATIONS Current Medications Medications (Trade) Dose Ordered Sig/Michele Route PRN Reason Start Time Stop Time Status Last Admin Dose Admin Labetalol HCl (Normodyne) 10 mg 1X ONCE IVP 10/13/16 17:45 10/13/16 17:46 DC 10/13/16 17:55 Aspirin (Darby Aspirin) 325 mg 1X ONCE PO 10/13/16 19:00 10/13/16 19:01 DC 10/13/16 19:00 Labetalol HCl (Normodyne) 10 mg PRN Q1HR PRN IVP HTN 10/13/16 18:45 10/13/16 19:14 Sodium Chloride 1,000 ml @ 100 mls/hr Q10H IV 10/13/16 18:57 10/14/16 05:54 Aspirin (Ecotrin) 325 mg DAILYWBKFT PO 10/14/16 08:00 10/14/16 07:23 Simvastatin (Zocor) 40 mg QHS PO 10/13/16 21:00 10/13/16 21:40 Enoxaparin Sodium (Lovenox 40mg Syringe) 40 mg Q24H SQ 10/13/16 20:00 10/13/16 21:40 Ketorolac Tromethamine (Acular) 1 drop QID OS 10/14/16 09:00 10/14/16 09:15 DC 10/14/16 07:24 Dexamethasone (Maxidex) 1 drop Q4HRS W/A OS 10/14/16 06:00 10/14/16 09:14 DC 10/14/16 07:23 Iohexol (Omnipaque 300 Mg/ml) 60 ml 1X ONCE IV 10/14/16 12:15 10/14/16 12:16 DC 10/14/16 12:24 ALLERGIES ALLERGIES: Coded Allergies: No Known Drug Allergies (Unverified , 10/13/16) ROS Review of System 14 point review with pertinent positives in HPI PHYSICAL EXAM General: Alert, Oriented X3, Cooperative, No acute distress HEENT: Atraumatic, PERRLA Lungs: Clear to auscultation Heart: Regular rate, Normal S1, Normal S2 (? split 2) Abdomen: Normal bowel sounds, Soft Extremities: No edema, Normal pulses Skin: No rashes Neuro: Normal speech Psych/Mental Status: Mental status NL, Mood NL MUSCULOSKELETAL: Osteoarthritic changes both hands VITALS VITALS Vital Signs Date Time Temp Pulse Resp B/P (MAP) Pulse Ox O2 Delivery O2 Flow Rate FiO2 10/14/16 11:00 98.1 68 18 195/87 (123) 100 Room Air 98.1 LABS Lab: Laboratory Tests Test 10/13/16 17:31 10/13/16 17:35 10/14/16 02:50 Glucose (Fingerstick) 100 mg/dL (70-99) White Blood Count 7.2 x10^3/uL (4.0-11.0) Red Blood Count 4.23 x10^6/uL (3.50-5.40) Hemoglobin 13.5 g/dL (12.0-15.5) Hematocrit 40.1 % (36.0-47.0) Mean Corpuscular Volume 95 fL (79-100) Mean Corpuscular Hemoglobin 32 pg (25-35) Mean Corpuscular Hemoglobin Concent 34 g/dL (31-37) Red Cell Distribution Width 13.7 % (11.5-14.5) Platelet Count 234 x10^3/uL (140-400) Neutrophils (%) (Auto) 55 % (31-73) Lymphocytes (%) (Auto) 33 % (24-48) Monocytes (%) (Auto) 9 % (0-9) Eosinophils (%) (Auto) 2 % (0-3) Basophils (%) (Auto) 1 % (0-3) Neutrophils # (Auto) 4.0 x10^3uL (1.8-7.7) Lymphocytes # (Auto) 2.4 x10^3/uL (1.0-4.8) Monocytes # (Auto) 0.7 x10^3/uL (0.0-1.1) Eosinophils # (Auto) 0.2 x10^3/uL (0.0-0.7) Basophils # (Auto) 0.1 x10^3/uL (0.0-0.2) Prothrombin Time 12.9 SEC (11.7-14.0) Prothromb Time International Ratio 1.0 (0.8-1.1) Activated Partial Thromboplast Time 24 SEC (24-38) Sodium Level 139 mmol/L (136-145) Potassium Level 4.1 mmol/L (3.5-5.1) Chloride Level 103 mmol/L (98-107) Carbon Dioxide Level 29 mmol/L (21-32) Anion Gap 7 (6-14) Blood Urea Nitrogen 28 mg/dL (7-20) Creatinine 1.1 mg/dL (0.6-1.0) Estimated GFR (Cockcroft-Gault) 48.2 BUN/Creatinine Ratio 25 (6-20) Glucose Level 104 mg/dL (70-99) Calcium Level 8.7 mg/dL (8.5-10.1) Total Bilirubin 0.4 mg/dL (0.2-1.0) Aspartate Amino Transf (AST/SGOT) 22 U/L (15-37) Alanine Aminotransferase (ALT/SGPT) 20 U/L (14-59) Alkaline Phosphatase 80 U/L (46-116) Total Protein 6.7 g/dL (6.4-8.2) Albumin 3.6 g/dL (3.4-5.0) Albumin/Globulin Ratio 1.2 (1.0-1.7) Triglycerides Level 45 mg/dL (0-150) Cholesterol Level 220 mg/dL (0-200) LDL Cholesterol, Calculated 138 mg/dL (0-100) VLDL Cholesterol, Calculated 9 mg/dL (0-40) Non-HDL Cholesterol Calculated 147 mg/dL (0-129) HDL Cholesterol 73 mg/dL (40-60) Cholesterol/HDL Ratio 3.0 IMAGES IMAGES MRI: Acute right MCA distribution infarct mostly involving the right frontal lobe. No hemorrhage or mass effect. Old infarcts involving the left frontal operculum, right parietal lobe, and bilateral cerebellar hemispheres. CDU: 1. Moderate atherosclerotic plaquing at the right carotid bifurcation with underlying luminal narrowing in the proximal internal carotid artery in the 50-70% diameter range. The Doppler findings have worsened slightly since 2012. 2. Mild atherosclerotic plaquing at the left carotid bifurcation with underlying luminal narrowing in the 0-50% diameter range. EKG EKG no acute changes ECHOCARDIOGRAM ECHOCARDIOGRAM 10/14/2016: TTE: The left ventricular systolic function is normal and the ejection fraction is within normal range. The Ejection Fraction is 55-60%. There is normal LV segmental wall motion. Doppler and Color-flow revealed mild to moderate mitral regurgitation. Doppler and Color Flow revealed moderate tricuspid regurgitation. There is severe pulmonary hypertension. The PA pressure was estimated at 85 mmHg. ASSESSMENT/PLAN ASSESSMENT/PLAN 1. acute MCA infarct preserved LV function on echo; mild to moderate MR no atrial dysrhythmias on tele - short run of PSVT hx of MV repair with annuloplasty ring - 2012 PFO reported on TOOTIE prior to MV annuloplasty - ? need to repeat TOOTIE event monitor at discharge - ? start OAC 2. malignant HTN BP parameters per neuro 3. HLD started on statins Problems: KATRAPATI,MELE S MD 10/14/16 1721: CARDIAC CONSULT ALLERGIES ALLERGIES: Coded Allergies: No Known Drug Allergies (Unverified , 10/13/16) ASSESSMENT/PLAN ASSESSMENT/PLAN Pt. seen and examined. Agree with above TILER'S ASSISTANT note with following changes. 76 y.o woman presenting with right frontal stroke. Plan for R CEA later this week. On exam she has normal heart tones with a diastolic and systolic murmur. Her echo shows normal LV function and severe pulm HTN. She would be low to moderate risk for local/cervical block carotid endarterectomy. If converted to general, her risk of perioperative M&M would be in the moderate category. Although the stroke is embolic, it is not cardioembolic at the moment. Will stop eliquis given upcoming surgery. continue present meds otherwise. Will follow along. Will plan for outpt event monitor. If recurrent CVA, may need TOOTIE/closure of PFO. Problems: PRAVIN SANDOVAL APRN Oct 14, 2016 14:18 MELE BRADY MD Oct 14, 2016 17:21
--- NOTE | 2016-10-14 14:32 | RAD ---
Indication CVA. CTA targeted to the major vessels off the arch of the aorta, the internal and common carotid arteries and vertebral arteries was performed. The huslia of Marquez was also evaluated. Note is made of a noncontrast examination of the head yesterday and the MRI examination of the head today demonstrating changes compatible with a right MCA infarct. Note is made of the Doppler ultrasound examination earlier this day targeted to the carotid arteries. MIP images were generated and reviewed. Volume rendered images were also generated and reviewed. Approximately 60 cc of Omnipaque 300 was administered intravenously. The lung apices appear clear. A significant soft tissue finding in the neck is not seen. The origin of the innominate, left common carotid and left subclavian arteries off the aorta is essentially unremarkable. There is some plaquing at the origin of the left subclavian artery but no significant stenosis. The innominate artery bifurcates unremarkably into the right common carotid and right subclavian. The visualized portions of both subclavian arteries appear normal. The right common carotid is unremarkable. There is moderately heavy plaquing at the bifurcation. There is a short segment of stenosis at the bifurcation extending into the internal carotid. Maximal stenosis is estimated at approximately 70-80%. The remainder the internal carotid appears unremarkable. The horizontal and cavernous segments appear unremarkable. There is some plaquing associated with the supraclinoid segment. On the left the common carotid is unremarkable. There is modest plaquing at the bifurcation but no evidence of significant stenosis. The internal carotid is normal. The horizontal and cavernous segments appear unremarkable and the supraclinoid segment appears normal. The vertebral arteries originate unremarkably off their respective subclavian arteries. The left vertebral is slightly dominant. The vertebral arteries unite unremarkably to form the basilar artery. No significant finding is seen at the huslia of Marquez. A1 and M1 segments appear unremarkable. Anterior cerebral arteries appear normal. A significant finding in the posterior fossa is not seen. IMPRESSION: At the right carotid bifurcation, over a short segment, there is evidence for hemodynamically significant stenosis. Stenosis is estimated at 70-80%.. No additional significant vascular anomaly is seen Note: Stenosis calculations for CT, MR and conventional angiography are based upon determination of the distal ICA diameter in accordance with the NASCET methodology. Stenosis calculations for doppler studies are derived from validated velocity criteria which are known to correlate with NASCET methodology of determining stenosis.
--- NOTE | 2016-10-14 16:01 | PDOC2 ---
CONSULT Date of Consult Date of Consult DATE: 10/14/16 TIME: 15:47 Reason for Consult Reason for Consult: right ICA stenosis, symptomatic Referring Physician Referring Physician: Dr. Guevara Identification/Chief Complaint Chief Complaint Left sided weakness Source Source: Patient History of Present Illness Reason for Visit: Ms. Martinez is a 76 y/o with pulmonary HTN, mitral valve repair (2012), prior stroke (2012) that presented wtih left arm/leg weakness and dysarthria around 5 pm yesterday. She has completely recovered, and denies any weakness, slurred speech, or visual changes. She does not have any residual symptoms from her previous stroke in 2012 after the mitral valve repair. She does not smoke. She live with her . She denies any fevers, chills, nausea, or vomiting. She denies claudication, rest pain, or ulcers. 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; MV repair - P2 posterior leaflet; annuloplasty with #28 mm Physio ring), Other (PFO reported on TOOTIE 05/2012 as well as MV vegetation) Pulmonary: No pertinent hx CENTRAL NERVOUS SYSTEM: CVA (2012) GI: No pertinent hx Heme/Onc: No pertinent hx Hepatobiliary: No pertinent hx Psych: No pertinent hx Musculoskeletal: Osteoarthritis, Other (diskitis - 2012; lumbar compression fracture - 2012; Duyputren's contracture right hand) Rheumatologic: No pertinent hx Infectious disease: Other (strep viridins - 2012; affecting MV) ENT: No pertinent hx, Other (glaucoma/cataracts) Renal/: No pertinent hx Endocrine: No pertinent hx Dermatology: No pertinent hx Past Surgical History Past Surgical History: Appendectomy Family History Family History: Stroke Social History No ALCOHOL: none Drugs: None Lives: with Family Current Problem List Problem List Problems Medical Problems: (1) Acute left-sided weakness Status: Acute Current Medications Current Medications Current Medications Labetalol HCl (Normodyne) 10 mg 1X ONCE IVP Last administered on 10/13/16 17: 55; Start 10/13/16 at 17:45; Stop 10/13/16 at 17:46; Status DC Aspirin (Darby Aspirin) 325 mg 1X ONCE PO Last administered on 10/13/16 19:00 ; Start 10/13/16 at 19:00; Stop 10/13/16 at 19:01; Status DC Ondansetron HCl (Zofran) 4 mg PRN Q8HRS PRN IV NAUSEA/VOMITING; Start 10/13/16 at 18:45; Stop 10/14/16 at 18:44 Acetaminophen (Tylenol) 650 mg PRN Q4HRS PRN PO FEVER; Start 10/13/16 at 18:45; Stop 10/14/16 at 18:44 Labetalol HCl (Normodyne) 10 mg PRN Q1HR PRN IVP HTN Last administered on 19:14; Start 10/13/16 at 18:45 Sodium Chloride (Normal Saline Flush) 3 ml QSHIFT PRN IV AFTER MEDS AND BLOOD DRAWS; Start 10/13/16 at 19:00 Sodium Chloride 1,000 ml @ 100 mls/hr Q10H IV Last administered on 10/14/16 15 :30; Start 10/13/16 at 18:57 Aspirin (Ecotrin) 325 mg DAILYWBKFT PO Last administered on 10/14/16 07:23; Start 10/14/16 at 08:00 Simvastatin (Zocor) 40 mg QHS PO Last administered on 10/13/16 21:40; Start 10/13/16 at 21:00 Labetalol HCl (Normodyne) 10 mg PRN Q10MIN PRN IV HYPERTENSION, SEE COMMENTS; Start 10/13/16 at 19:00 Acetaminophen (Tylenol) 650 mg PRN Q6HRS PRN PO FEVER; Start 10/13/16 at 19:00 Acetaminophen (Acetaminophen Supp) 650 mg PRN Q6HRS PRN UT FEVER; Start at 19:00 Ondansetron HCl (Zofran) 4 mg PRN Q6HRS PRN IV NAUSEA/VOMITING; Start 10/13/16 at 19:00 Enoxaparin Sodium (Lovenox 40mg Syringe) 40 mg Q24H SQ Last administered on 10/13 21:40; Start 10/13/16 at 20:00 Atenolol (Tenormin) 25 mg DAILY PO ; Start 10/14/16 at 09:00 Ketorolac Tromethamine (Acular) 1 drop QID OS Last administered on 10/14/16 07: 24; Start 10/14/16 at 09:00; Stop 10/14/16 at 09:15; Status DC Dexamethasone (Maxidex) 1 drop Q4HRS W/A OS Last administered on 10/14/16 07: 23; Start 10/14/16 at 06:00; Stop 10/14/16 at 09:14; Status DC Dorzolamide/ Timolol (Cosopt) 1 drop BID OU ; Start 10/14/16 at 10:00 Latanoprost (Xalatan) 1 drop QHS OU ; Start 10/14/16 at 21:00 Iohexol (Omnipaque 300 Mg/ml) 60 ml 1X ONCE IV Last administered on 10/14/16 12:24; Start 10/14/16 at 12:15; Stop 10/14/16 at 12:16; Status DC Info (Do NOT chart on this entry -- for MONITORING) 1 each PRN DAILY PRN MC SEE COMMENTS; Start 10/14/16 at 12:15; Stop 10/16/16 at 12:14 Active Scripts Active Reported Dorzolamide-Timolol Eye Drops (Dorzolamide Hcl/Timolol Maleat) 10 Ml Drops 1 Drop EACHEYE BID Latanoprost 2.5 Ml Drops 1 Drop EACHEYE QHS Atenolol 25 Mg Tablet 25 Mg PO DAILY Allergies Allergies: Coded Allergies: No Known Drug Allergies (Unverified , 10/13/16) Physical Exam General: Alert, Oriented X3 HEENT: Atraumatic, PERRLA, EOMI Lungs: Clear to auscultation, Normal air movement Heart: Regular rate, Normal S1, Normal S2 Abdomen: Normal bowel sounds, Soft, No tenderness Extremities: No clubbing, No cyanosis, Normal pulses Skin: No rashes, No breakdown Neuro: Normal gait, Normal speech, Strength at 5/5 X4 ext, Sensation intact, Cranial nerves 3-12 NL MUSCULOSKELETAL: No swelling Vitals VITALS Vital Signs Date Time Temp Pulse Resp B/P (MAP) Pulse Ox O2 Delivery O2 Flow Rate FiO2 10/14/16 15:00 97.8 76 18 202/95 (130) 99 Room Air 97.8 Labs Labs Laboratory Tests Test 10/13/16 17:31 10/13/16 17:35 10/14/16 02:50 Glucose (Fingerstick) 100 mg/dL (70-99) White Blood Count 7.2 x10^3/uL (4.0-11.0) Red Blood Count 4.23 x10^6/uL (3.50-5.40) Hemoglobin 13.5 g/dL (12.0-15.5) Hematocrit 40.1 % (36.0-47.0) Mean Corpuscular Volume 95 fL (79-100) Mean Corpuscular Hemoglobin 32 pg (25-35) Mean Corpuscular Hemoglobin Concent 34 g/dL (31-37) Red Cell Distribution Width 13.7 % (11.5-14.5) Platelet Count 234 x10^3/uL (140-400) Neutrophils (%) (Auto) 55 % (31-73) Lymphocytes (%) (Auto) 33 % (24-48) Monocytes (%) (Auto) 9 % (0-9) Eosinophils (%) (Auto) 2 % (0-3) Basophils (%) (Auto) 1 % (0-3) Neutrophils # (Auto) 4.0 x10^3uL (1.8-7.7) Lymphocytes # (Auto) 2.4 x10^3/uL (1.0-4.8) Monocytes # (Auto) 0.7 x10^3/uL (0.0-1.1) Eosinophils # (Auto) 0.2 x10^3/uL (0.0-0.7) Basophils # (Auto) 0.1 x10^3/uL (0.0-0.2) Prothrombin Time 12.9 SEC (11.7-14.0) Prothromb Time International Ratio 1.0 (0.8-1.1) Activated Partial Thromboplast Time 24 SEC (24-38) Sodium Level 139 mmol/L (136-145) Potassium Level 4.1 mmol/L (3.5-5.1) Chloride Level 103 mmol/L (98-107) Carbon Dioxide Level 29 mmol/L (21-32) Anion Gap 7 (6-14) Blood Urea Nitrogen 28 mg/dL (7-20) Creatinine 1.1 mg/dL (0.6-1.0) Estimated GFR (Cockcroft-Gault) 48.2 BUN/Creatinine Ratio 25 (6-20) Glucose Level 104 mg/dL (70-99) Calcium Level 8.7 mg/dL (8.5-10.1) Total Bilirubin 0.4 mg/dL (0.2-1.0) Aspartate Amino Transf (AST/SGOT) 22 U/L (15-37) Alanine Aminotransferase (ALT/SGPT) 20 U/L (14-59) Alkaline Phosphatase 80 U/L (46-116) Total Protein 6.7 g/dL (6.4-8.2) Albumin 3.6 g/dL (3.4-5.0) Albumin/Globulin Ratio 1.2 (1.0-1.7) Triglycerides Level 45 mg/dL (0-150) Cholesterol Level 220 mg/dL (0-200) LDL Cholesterol, Calculated 138 mg/dL (0-100) VLDL Cholesterol, Calculated 9 mg/dL (0-40) Non-HDL Cholesterol Calculated 147 mg/dL (0-129) HDL Cholesterol 73 mg/dL (40-60) Cholesterol/HDL Ratio 3.0 Laboratory Tests Test 10/13/16 17:31 10/13/16 17:35 10/14/16 02:50 Glucose (Fingerstick) 100 mg/dL (70-99) White Blood Count 7.2 x10^3/uL (4.0-11.0) Red Blood Count 4.23 x10^6/uL (3.50-5.40) Hemoglobin 13.5 g/dL (12.0-15.5) Hematocrit 40.1 % (36.0-47.0) Mean Corpuscular Volume 95 fL (79-100) Mean Corpuscular Hemoglobin 32 pg (25-35) Mean Corpuscular Hemoglobin Concent 34 g/dL (31-37) Red Cell Distribution Width 13.7 % (11.5-14.5) Platelet Count 234 x10^3/uL (140-400) Neutrophils (%) (Auto) 55 % (31-73) Lymphocytes (%) (Auto) 33 % (24-48) Monocytes (%) (Auto) 9 % (0-9) Eosinophils (%) (Auto) 2 % (0-3) Basophils (%) (Auto) 1 % (0-3) Neutrophils # (Auto) 4.0 x10^3uL (1.8-7.7) Lymphocytes # (Auto) 2.4 x10^3/uL (1.0-4.8) Monocytes # (Auto) 0.7 x10^3/uL (0.0-1.1) Eosinophils # (Auto) 0.2 x10^3/uL (0.0-0.7) Basophils # (Auto) 0.1 x10^3/uL (0.0-0.2) Prothrombin Time 12.9 SEC (11.7-14.0) Prothromb Time International Ratio 1.0 (0.8-1.1) Activated Partial Thromboplast Time 24 SEC (24-38) Sodium Level 139 mmol/L (136-145) Potassium Level 4.1 mmol/L (3.5-5.1) Chloride Level 103 mmol/L (98-107) Carbon Dioxide Level 29 mmol/L (21-32) Anion Gap 7 (6-14) Blood Urea Nitrogen 28 mg/dL (7-20) Creatinine 1.1 mg/dL (0.6-1.0) Estimated GFR (Cockcroft-Gault) 48.2 BUN/Creatinine Ratio 25 (6-20) Glucose Level 104 mg/dL (70-99) Calcium Level 8.7 mg/dL (8.5-10.1) Total Bilirubin 0.4 mg/dL (0.2-1.0) Aspartate Amino Transf (AST/SGOT) 22 U/L (15-37) Alanine Aminotransferase (ALT/SGPT) 20 U/L (14-59) Alkaline Phosphatase 80 U/L (46-116) Total Protein 6.7 g/dL (6.4-8.2) Albumin 3.6 g/dL (3.4-5.0) Albumin/Globulin Ratio 1.2 (1.0-1.7) Triglycerides Level 45 mg/dL (0-150) Cholesterol Level 220 mg/dL (0-200) LDL Cholesterol, Calculated 138 mg/dL (0-100) VLDL Cholesterol, Calculated 9 mg/dL (0-40) Non-HDL Cholesterol Calculated 147 mg/dL (0-129) HDL Cholesterol 73 mg/dL (40-60) Cholesterol/HDL Ratio 3.0 Images Images CTA neck 10/14/16: IMPRESSION: At the right carotid bifurcation, over a short segment, there is evidence for hemodynamically significant stenosis. Stenosis is estimated at 70-80%.. No additional significant vascular anomaly is seen MRI Head 10/14/16 IMPRESSION: Acute right MCA distribution infarct mostly involving the right frontal lobe. No hemorrhage or mass effect. Old infarcts involving the left frontal operculum, right parietal lobe, and bilateral cerebellar hemispheres. Echo 10/14/16 EF 55-60% Mitral valve ring noted severe pulmonary hypertension, 85 mmHg Assessment/Plan Assessment/Plan Lupe martinez 76 y/o female 1. TIA 2. Symptomatic right carotid stenosis 3. prior MV repair 4. HTN Plan: The CTA of the neck and the carotid ultrasound were reviewed, and 70-80% stenosis of the right carotid artery was noted. The left carotid artery is patent without significant stenosis. The MRI findings were reviewed, and there is an acute right frontal lobe infarct in the MCA distribution. There are also old infarcts involving the left frontal operculum and right parietal lobe. The acute infarct findings with the CTA neck with her stable heart function from the echo indicate the likely embolic source is the right internal carotid artery stenosis. Recommend medical therapy with aspirin, statin, and BP control. In addition, I discussed with her the risks and benefits of right carotid endarterectomy (including risk of stroke, nerve injury, and bleeding). She was concerned about general anesthesia with the pulmonary hypertension, but the plan would be to perform a carotid endarterectomy awake with a cervical block/local anesthesia. She would like to proceed with surgery. Will determine to timing of the operation, may be over the weekend or Monday of next week. NAVIN ARENAS MD Oct 14, 2016 16:01
[2016-10-14] MEDS ORDERED: APIXABAN 5 MG TABLET. PO SCH (17:00)
[2016-10-14] MEDS: SIMVASTATIN 40 MG TABLET. PO SCH (19:43)
[2016-10-14] MEDS ORDERED: LATANOPROST 0.005% OPHTH SOLUTION 2.5ML BOTTLE. OU SCH (21:00)
[2016-10-15] MEDS: IV NORMAL SALINE 1000ML BAG 1,000 ML IV SCH (01:10)
[2016-10-15 02:51] VITALS: BP 167/97
[2016-10-15] MEDS: DORZOLAMIDE/TIMOLOL 2%/0.5% OPHTH SOLUTION 10ML BOTTLE. OU SCH (07:18)
[2016-10-15 07:29] VITALS: BP 173/97
[2016-10-15 07:49] VITALS: BP 173/97
[2016-10-15] MEDS: ATENOLOL 25 MG TABLET. PO SCH (07:49)
[2016-10-15] MEDS ORDERED: ASPIRIN ENTERIC COATED 81 MG TABLET.DR. PO SCH (08:00)
[2016-10-15] MEDS ORDERED: SIMV40TA3 PO (09:37)
[2016-10-15] MEDS ORDERED: ASPI-612 PO (09:37)
[2016-10-17] MEDS ORDERED: MAGN400C PO (14:32)
[2016-10-17] MEDS ORDERED: CALC500T54 PO (14:32)
[2016-10-17] MEDS ORDERED: CHOL10003 PO (14:32)
[2016-10-17] MEDS ORDERED: VITA15LO2 PO (14:32)
[2016-10-18] MEDS ORDERED: ONDANSETRON PF 4 MG/2 ML VIAL. IV PRN (07:00)
[2016-10-18] MEDS ORDERED: MORPHINE SULFATE 2 MG/ML DISP.SYRIN. IV PRN (07:00)
== END 2016-10-15 10:12 | disposition home or self-care (01) | DRG 65 ==
LOC: ER 17:16 → ED HOLD 18:15 → 6 SOUTH 20:50
PROVIDERS: ADMIT Internal Medicine; ATTEND Internal Medicine
DX: I63.411 Cerebral infarction due to embolism of right middle cerebral artery (principal); G81.94 Hemiplegia, unspecified affecting left nondominant side; I10 Essential (primary) hypertension; H40.9 Unspecified glaucoma; E78.5 Hyperlipidemia, unspecified; I27.2 Other secondary pulmonary hypertension; I25.10 Atherosclerotic heart disease of native coronary artery without angina pectoris; H26.9 Unspecified cataract; M19.90 Unspecified osteoarthritis, unspecified site; Z87.311 Personal history of (healed) other pathological fracture; Z79.899 Other long term (current) drug therapy; Z79.1 Long term (current) use of non-steroidal anti-inflammatories (NSAID); Z79.2 Long term (current) use of antibiotics; Z82.3 Family history of stroke; Z82.49 Family history of ischemic heart disease and other diseases of the circulatory system; Z86.73 Personal history of transient ischemic attack (TIA), and cerebral infarction without residual deficits; Z90.49 Acquired absence of other specified parts of digestive tract; Z79.82 Long term (current) use of aspirin; I65.21 Occlusion and stenosis of right carotid artery
CPT/HCPCS: 36415; 70450; 70496; 70498; 70551; 80053; 80061; 82962; 85027; 85610; 85730; 93005; 93306; 93880; 96374; 96375; J1650; J3490; J7030; Q9967; 92610; 99285-25

== ENCOUNTER 2016-10-18 05:37 | Inpatient (IN) | payer BC ==
[~2016-10-18] VITALS: Ht 157.5 cm; Wt 53.7 kg
[2016-10-18] VITALS (15 sets, daily range): BP systolic 135–180; BP diastolic 6–76
[~2016-10-18 05:37] MED LIST: ASPI-612 PO; ATEN25TA PO; BROM3DRO OS; CALC500T54 PO; CHOL10003 PO; CIPROFLOXACIN OS; DORZ10DR7 EACHEYE; LATA2.5D3 EACHEYE; MAGN400C PO; PRED5DRO16 OS; SIMV40TA3 PO; VITA15LO2 PO
[2016-10-18] MEDS ORDERED: HEPARIN SODIUM 5,000 UNIT in IV NORMAL SALINE 500ML BAG 500 ML IRR ONE (06:00)
[2016-10-18] MEDS ORDERED: LIDOCAINE 1% 20 ML VIAL. ONE (06:33)
[2016-10-18] MEDS ORDERED: PROTAMINE 50 MG/5 ML VIAL. IV ONE (06:33)
[2016-10-18] MEDS ORDERED: SURGICEL FIBRILLAR 1X2 EACH. ONE (06:33)
[2016-10-18] MEDS ORDERED: PROCHLORPERAZINE 10 MG/2 ML VIAL. IV PRN (07:00)
[2016-10-18] MEDS ORDERED: HYDROmorphone 2 MG/ML VIAL IV PRN (07:00)
[2016-10-18] MEDS ORDERED: IV RINGERS,LACTATED 1000ML 1,000 ML IV SCH (07:00)
[2016-10-18] MEDS ORDERED: LIDOCAINE 1% 1 ML SYRINGE. ID PRN (07:00)
[2016-10-18] MEDS ORDERED: ONDANSETRON PF 4 MG/2 ML VIAL. IV PRN ×3 (07:00→14:45)
[2016-10-18] MEDS ORDERED: fentaNYL PF VIAL 100 MCG/2 ML VIAL IV PRN ×2 (07:00)
[2016-10-18] MEDS ORDERED: MORPHINE SULFATE 2 MG/ML DISP.SYRIN. IV PRN ×2 (07:00→07:15)
[2016-10-18] MEDS ORDERED: MIDAZOLAM HCL/PF 2 MG/2 ML VIAL. ONE (07:05)
[2016-10-18] MEDS ORDERED: fentaNYL PF VIAL 100 MCG/2 ML VIAL ONE (07:05)
[2016-10-18] MEDS ORDERED: HEPARIN for IV BOLUS 10,000 UNIT/10 ML VIAL. ONE (07:05)
[2016-10-18] MEDS ORDERED: LIDOCAINE 2% 20 ML VIAL. ONE (07:10)
[2016-10-18] MEDS ORDERED: 0.9 % SODIUM CHLORIDE 10 ML DISP.SYRIN. IV PRN (07:15)
[2016-10-18] MEDS ORDERED: oxyCODONE/APAP 5/325 1 TAB TABLET PO PRN ×2 (07:15)
[2016-10-18] MEDS ORDERED: NALOXONE 0.4 MG/ML VIAL. IV PRN (07:15)
--- NOTE | 2016-10-18 07:24 | PDOC ---
Provider Note Provider Note See full H&P by Dr. Saldivar done on 10/14/2016 76 year old female with a recent acute right frontal lobe infarct. Her neurologic symptoms have resolved. CTA and US shows severe right internal carotid artery stenosis which is symptomatic. Today her neuro exam is intact with no gross deficits. She is taking daily aspirin. Plan right carotid endarterectomy. ANISHA GAINES MD Oct 18, 2016 07:24
[2016-10-18] MEDS ORDERED: hydrALAZINE 20 MG/ML VIAL. ONE (08:52)
[2016-10-18] MEDS: DORZOLAMIDE/TIMOLOL 2%/0.5% OPHTH SOLUTION 10ML BOTTLE. OU SCH ×2 (09:00→20:35)
[2016-10-18] MEDS ORDERED: ONDANSETRON PF 4 MG/2 ML VIAL. ONE (09:04)
--- NOTE | 2016-10-18 09:12 | PDOC4 ---
Operative Note Operative Note OP NOTE dictated Pre-op: right internal carotid artery severe symptomatic stenosis Post-op: right internal carotid artery stenosis >80% Surgeon: Dr. Chance Chief Of Service: Dr. Diaz Operation: right carotid endarterectomy Anesthesia: Monitored sedation, right neck cervical block Blood loss: 20ml ANISHA CHANCE MD Oct 18, 2016 09:12
[2016-10-18] MEDS: hydrALAZINE 20 MG/ML VIAL. IVP PRN ×5 (09:30→19:36)
[2016-10-18] MEDS: ASPIRIN ENTERIC COATED 325 MG TABLET.DR. PO SCH (11:32)
[2016-10-18] MEDS: IV NORMAL SALINE 1000ML BAG 1,000 ML IV SCH ×2 (11:33→17:00)
[2016-10-18] MEDS: ATENOLOL 25 MG TABLET. PO SCH (11:33)
--- NOTE | 2016-10-18 12:33 | OP ---
DATE OF SURGERY: 10/18/2016 SURGEON: Oliva Chance M.D. BUSINESS SERVICES SALES REPRESENTATIVE: Brant Diaz M.D. PREOPERATIVE DIAGNOSIS: Severe right internal carotid artery stenosis, which is symptomatic with a recent right frontal lobe infarct. POSTOPERATIVE DIAGNOSIS: Right internal carotid artery stenosis of greater than 80%. OPERATION PERFORMED: Right carotid endarterectomy using the eversion endarterectomy technique. ANESTHESIA: Monitored sedation with the right neck cervical block. ESTIMATED BLOOD LOSS: 20 mL. INDICATIONS: The patient is a 76-year-old female, who suffered a recent right frontal lobe acute infarct. Her symptoms quickly resolved and she has continued to have no neurologic symptoms over the last week. Ultrasound study and CT angiogram showed severe stenosis of the proximal right internal carotid artery. I felt this was asymptomatic - likely, this caused the first acute stroke. I recommend a right carotid endarterectomy to help prevent future strokes. Informed consent was obtained including the risks of bleeding, infection, intraoperative or postoperative stroke, nerve damage, and possible recurrent carotid arterial disease in the future. DETAILS OF THE OPERATION: The patient was brought into the operating room and placed on the table in the supine position. She received monitored sedation throughout the case by the anesthesiologist and a preoperative right neck cervical block. Her right neck and chest were prepped and draped by normal sterile fashion using Chloraprep. We tested her skin with pickups and ensured no pain and then a longitudinal incision was made anterior to the sternocleidomastoid muscle in her neck. The subcutaneous tissue was dissected down with electrocautery. We transected the platysma muscle with electrocautery, and crossing side venous branches and lymphatics were clipped and divided. We continued dissection down to the sternocleidomastoid muscle, which was very thin and it was mobilized laterally. There were multiple larger venous branches that were suture ligated with 3-0 silk sutures and divided, and the internal jugular vein was identified and retracted laterally, crossing branches again ligated with 3-0 silk sutures and divided. We identified the common carotid artery and the proximal incision. The patient was heparinized then with 6000 units of heparin. We dissected out the proximal common carotid artery, which was very soft and placed an umbilical tape around it. We continued dissection proximally to the carotid bulb and the external carotid artery, which was sitting lateral in the wound. We placed a vessel loop around the external carotid artery and continued dissection along the internal carotid artery. We did identify and preserve the hypoglossal nerve. There were small venous branches, which were ligated with clips and divided and we dissected out the internal carotid artery up to a very soft mid and distal segment - a vessel loop was placed around the distal internal carotid vessel. We test-clamped the patient at the common carotid. She was able to squeeze her left hand well with no deficits. We then clamped the distal internal carotid and external carotid artery. She remained neurologically intact. We then transected the internal carotid artery in a spatulated form on to the common carotid vessel. The medial wall was spatulated with Alford-Lopez scissors and the common carotid was spatulated with Alford-Lopez scissors. An eversion endarterectomy of the dense plaque, which was greater than 88% stenotic at the proximal internal carotid artery, was performed with a Manning and pick-ups. We performed the eversion endarterectomy to the distal segment of the vessel, where the plaque easily came off and there was no further stenosis. All pieces of debris were removed from the distal endarterectomized end that was nicely clean and widely patent. We removed all pieces of plaque from the endarterectomized vessel, we irrigated it with heparinized saline, and confirmed that there was no further significant plaque. Eversion endarterectomy was performed of the common carotid and external carotid arteries, a small amount of plaque was removed from the external carotid artery, which was widely patent with good back-bleeding, and endarterectomies were performed to the clamped location of the common carotid artery - it was transected. There was no residual significant stenosis, there was a nice endarterectomized segment, and there were no pieces of debris. We irrigated with heparinized saline and confirmed that the endarterectomized vessel was nice and clean with no further pieces of plaque or debris. We then performed an anastomosis with 6-0 Prolene suture and fashioned between the spatulated internal carotid artery and the widely patent common and external carotid artery with running 6-0 Prolene suture. Prior to finishing this anastomosis, we back-bled the internal carotid artery flush to the common carotid. There was pulsatile bleeding, and back-bled the external carotid. I irrigated the open vessel with heparinized saline and finished the anastomosis. We then backbled the internal carotid artery and clamped it with a pick-up at the origin of the vessel and removed the clamp off the external and common carotid artery. We flushed through the external carotid artery ____ and then restored blood flow to the internal carotid artery. There was good hemostasis along the anastomosis. There was some bleeding from a venous branch lateral in the wound, which was oversewn with 5-0 Prolene suture. We irrigated the open wound with saline. Lidocaine was used to anesthetize the skin in the lower neck beneath the incision. A small incision was made and a Nilton-Navarrete drain was pulled through the subcutaneous tissue and left within the wound. We explored the carotid artery and the open wound to ensure good hemostasis. ____ was left over the anastomosis in the vessels, then the platysma and subcutaneous tissue layer was closed with running 2-0 Vicryl suture and the skin were closed with running 4-0 Vicryl subcuticular suture. Steri-Strips and a sterile dressing were placed. The patient tolerated the surgery well with no immediate complications. She was neurologic intact at the end of the case. OLIVA CHANCE MD DR: BARON/chari JOB#: [id number] / [id number]
[2016-10-18] MEDS ORDERED: ALBUTEROL SULFATE 2.5 MG/3 ML NEBU. NEB PRN (14:45)
[2016-10-18] MEDS ORDERED: HYDROcodone/APAP 5/325MG 1 TAB TABLET PO PRN (14:45)
[2016-10-18] MEDS ORDERED: ACETAMINOPHEN 325 MG TABLET. PO PRN (14:45)
--- NOTE | 2016-10-18 15:39 | PDOC1 ---
History and Physical Identification/Chief Complaint Chief Complaint R Carotid endarterectomy Problems: History of Present Illness History of Present Illness A 76 f with recent hx of CVA, and new diagnosis of RCA stenosis > 80% admitted to the hospital for endarterectomy, which is elective. she is kept in observation post surgery, her BP is controlled. pt denies any symptoms, pain is controlled, 5/10, no radiation better with current regimen. Past Medical History Past Medical History REVIEW OF SYSTEMS: CONSTITUTIONAL: No fever or chills. EYES: No recent vision changes. SKIN: No rash or itching. CARDIOVASCULAR: No chest pain, syncope, palpitations or edema. RESPIRATORY: No shortness of breath, cough. GASTROINTESTINAL: No nausea, vomiting, diarrhea or abdominal pain. NEUROLOGICAL: No headache, paralysis. ENDOCRINOLOGIC: No cold or heat intolerance. GENITOURINARY: No burning with urination, no urgency. MUSCULOSKELETAL: No back pain or joint pain. LYMPHATICS: No enlarged nodes. PSYCHIATRIC: No anxiety or depression. PHYSICAL EXAM: GENERAL: No apparent distress. alert and oriented times 3 HEENT: Head normocephalic, atraumatic. NECK: Supple. no JVD LUNGS: Clear to auscultation. HEART: Regular rate and rhythm; S1, S2 present; pulses intact. ABDOMEN: Soft and positive bowel sounds. EXTREMITIES: No cyanosis or edema. NEUROLOGIC: Normal speech and normal tone; alert and oriented. PSYCHIATRIC: Normal affect, normal mood. SKIN: neck JUANCHO drain present. Cardiovascular: HTN, Hyperlipidemia, Valve insufficiency, Other Pulmonary: No pertinent hx CENTRAL NERVOUS SYSTEM: CVA GI: No pertinent hx Heme/Onc: No pertinent hx Hepatobiliary: No pertinent hx Psych: No pertinent hx Rheumatologic: No pertinent hx Infectious disease: Other Renal/: No pertinent hx Endocrine: No pertinent hx Past Surgical History Past Surgical History: Appendectomy Family History Family History: Stroke Social History ALCOHOL: none Drugs: None Current Medications Current Medications Current Medications Medications (Trade) Dose Ordered Sig/Michele Start Time Stop Time Status Last Admin Dose Admin Acetaminophen (Tylenol) 325 mg PRN Q6HRS PRN 10/18/16 14:45 Acetaminophen/ Hydrocodone Bitart (Lortab 5/325) 1 tab PRN Q6HRS PRN 10/18/16 14:45 Albuterol Sulfate (Ventolin Neb Soln) 2.5 mg PRN Q4HRS PRN 10/18/16 14:45 Aspirin (Ecotrin) 325 mg DAILYWBKFT 10/18/16 11:00 10/18/16 11:32 325 MG Atenolol (Tenormin) 25 mg DAILY 10/18/16 09:00 10/18/16 11:33 25 MG Cefazolin Sodium 50 ml @ As Directed STK-MED ONCE 10/18/16 06:37 10/18/16 06:38 DC Cefazolin Sodium 1 gm/Sodium Chloride 500 ml @ 500 mls/hr 1X PERIOP ONCE 10/18/16 06:00 10/18/16 06:59 DC 10/18/16 07:57 Cefazolin Sodium/ Dextrose 50 ml @ 100 mls/hr 1X ONCE 10/18/16 07:00 10/18/16 07:29 DC 10/18/16 07:37 100 MLS/HR Cellulose 1 each STK-MED ONCE 10/18/16 06:33 10/18/16 06:34 DC Dorzolamide/ Timolol (Cosopt) 1 drop BID 10/18/16 09:00 Fentanyl Citrate (Fentanyl 2ml Vial) 100 mcg STK-MED ONCE 10/18/16 07:05 10/18/16 07:06 DC Heparin Sodium (Porcine) (Heparin Sodium) 10,000 unit STK-MED ONCE 10/18/16 07:05 10/18/16 07:06 DC Heparin Sodium (Porcine) 5000 unit/Sodium Chloride 505 ml @ 505 mls/hr 1X PERIOP ONCE 10/18/16 06:00 10/18/16 06:59 DC 10/18/16 07:57 Hydralazine HCl (Apresoline) 10 mg PRN Q4HRS PRN 10/18/16 14:45 Hydromorphone HCl (Dilaudid) 0.5 mg PRN Q10MIN PRN 10/18/16 07:00 10/19/16 06:59 Latanoprost (Xalatan) 1 drop QHS 10/18/16 21:00 Lidocaine HCl 20 ml STK-MED ONCE 10/18/16 07:10 10/18/16 07:11 DC Midazolam HCl (Versed) 2 mg STK-MED ONCE 10/18/16 07:05 10/18/16 07:06 DC Morphine Sulfate 2 mg PRN Q1HR PRN 10/18/16 07:15 Naloxone HCl (Narcan) 0.1 mg PRN Q2MIN PRN 10/18/16 07:15 Ondansetron HCl (Zofran) 4 mg PRN Q8HRS PRN 10/18/16 14:45 Oxycodone/ Acetaminophen (Percocet 5/325) 2 tab PRN Q4HRS PRN 10/18/16 07:15 Prochlorperazine Edisylate (Compazine) 5 mg PACU PRN PRN 10/18/16 07:00 10/19/16 06:59 Protamine Sulfate 50 mg STK-MED ONCE 10/18/16 06:33 10/18/16 06:34 DC Ringer's Solution 1,000 ml @ 30 mls/hr Q24H 10/18/16 07:00 10/18/16 11:45 DC 10/18/16 06:31 30 MLS/HR Simvastatin (Zocor) 40 mg QHS 10/18/16 21:00 Sodium Chloride 1,000 ml @ 100 mls/hr Q10H 10/18/16 07:01 10/18/16 11:33 100 MLS/HR Sodium Chloride (Normal Saline Flush) 3 ml QSHIFT PRN 10/18/16 07:15 Allergies Allergies Allergies Coded Allergies Type Severity Reaction Last Updated Verified loratadine Adverse Reaction Intermediate 10/18/16 Yes Uncoded Allergies Type Severity Reaction Last Updated Verified DIURETICS Adverse Reaction Intermediate 10/17/16 ROS Review of System CONSTITUTIONAL: No fever or chills EYES: No recent changes SKIN: No rash or itching CARDIOVASCULAR: No chest pain, syncope, palpitations, or edema RESPIRATORY: No SOB or cough GASTROINTESTINAL: No nausea, vomiting or abdominal pain NEUROLOGICAL: No headaches or weakness ENDOCRINE: No cold or heat intolerance GENITOURINARY: No urgency or frequency of urination MUSCULOSKELETAL: No back pain or joint pain LYMPHATICS: No enlarged lymph nodes PSYCHIATRIC: No anxiety or depression Physical Exam Physical Exam GEN.: No apparent distress. Alert and oriented. HEENT: Head is normocephalic, atraumatic NECK: Supple. LUNGS: Clear to auscultation. HEART: RRR, S1, S2 present. Peripheral pulses intact ABDOMEN: Soft, nontender. Positive bowel sounds. EXTREMITIES: Without any cyanosis. NEUROLOGIC: Normal speech, normal tone PSYCHIATRIC: Normal affect, normal mood. SKIN: No ulcerations Vitals Vitals Vital Signs Date Time Temp Pulse Resp B/P (MAP) Pulse Ox O2 Delivery O2 Flow Rate FiO2 10/18/16 14:55 63 184/79 10/18/16 12:00 Nasal Cannula 2.0 10/18/16 10:30 20 96 10/18/16 10:15 97.6 97.6 VTE Prophylaxis Ordered VTE Prophylaxis Devices: Yes VTE Pharmacological Prophylaxi: Yes Assessment/Plan Assessment/Plan Right carotid endarterectomy CVA HX with no new weakness HTN not controlled Plan CVC Observation Pain control PRN hydralazine 10 mg iv 4hrs prn for HTN Resume home medications DC planning in am d/w daughter at bedside. no new labs, old labs reviewed, . MONICO CASTAÑEDA MD Oct 18, 2016 15:39
--- NOTE | 2016-10-18 17:55 | ACF ---
Admission Forms Criteria VASCULAR DISEASE GRG Clinical Indications for Admission to Inpatient Care (Place 'X' for any and all applicable criteria): Hospital admission is needed for appropriate care of the patient because of ANY ONE of the following (1)(2)(3)(4): [ ]I. Life-threatening or limb-threatening skin ulcer as indicated by ANY ONE of the following(5): [ ]a) Surrounding cellulitis unresponsive to outpatient treatment [ ]b) Wet gangrene [ ]c) Lymphangitis [ ]d) Bacteremia [ ]II. Gangrene requiring intensity and frequency of care not manageable to outpatient, emergency, or observation level of care(5) [ ]III. Severe pain requiring acute inpatient management [X]IV. Interventional revascularization (eg, surgery, thrombolysis) needed (eg , critical limb ischemia)(21) [ ]V. Urgent inpatient IV anticoagulation needed due to ALL of the following: [ ]a) Temporary subtherapeutic anticoagulation unacceptable because of high risk of short-term venous or arterial thromboembolism due to ANY ONE of the following(7)(8)(9): [ ]i) Venous thromboembolism within the past 12 months [ ]ii) Underlying malignancy [ ]iii) Patient with mechanical cardiac valve(10)(11) [ ]iv) Underlying hypercoagulable state (eg, protein C or protein S deficiency, antithrombin deficiency, antiphospholipid antibodies) [ ]v) Patient at high risk of thromboembolism (eg, status post orthopedic surgery, history of recurrent venous thromboembolism) [ ]vi) Atrial fibrillation with rheumatic valvular heart disease [ ]vii) Atrial fibrillation with 3 or MORE of the following : [ ]1) Congestive heart failure [ ]2) Hypertension [ ]3) Age 65 years or older [ ]4) Diabetes mellitus [ ]5) History of thromboembolism (eg, stroke, TIA , or systemic embolization) more than 3 months ago [ ]6) Female gender [ ]b) Contraindications to outpatient use of "bridging" agent or alternative oral anticoagulant as indicated by ALL of the following: [ ]i) Contraindication to outpatient use of low-molecular -weight heparin as "bridging" agent as indicated by ANY ONE of the following(8) : [ ]1) Documented current or history of heparin- induced thrombocytopenia(12) [ ]2) Severe thrombocytopenia (eg, platelet count less than 50,000/mm3 (50 x109/L)) [ ]3) Documented allergy to heparin, low- molecular-weight heparin, or pork products [ ]4) Renal failure (creatinine clearance < 30 mL /min/1.73m2 (0.50 mL/sec/1.73m2) or on dialysis) [ ]5) Inability to manage self-injection (eg, by patient, caregiver, or visiting nurse) [ ]ii) Contraindication to outpatient use of fondaparinux as "bridging" agent as indicated by ANY ONE of the following(13)(14)(15)(16): [ ]1) Severe thrombocytopenia (eg, platelet count less than 50,000/mm3 (50 x109/L)) [ ]2) Hypersensitivity to fondaparinux, related drugs, or product components [ ]3) Renal failure (creatinine clearance less than 30 mL/min/1.73m2 (0.50 mL/sec/1.73m2) or on dialysis) [ ]4) Inability to manage self-injection (eg, by patient, caregiver, or visiting nurse) [ ]iii) Oral direct thrombin inhibitor (eg, dabigatran) or oral coagulation factor Xa inhibitor (eg, rivaroxaban) not appropriate as oral anticoagulation (eg, indication not appropriate) or contraindicated (eg, hypersensitivity, renal failure)(13)(16)(17)(18)(19)(20) [ ]. Suspected severe acute ischemia due to peripheral vascular disease as indicated by ANY ONE of the following(5)(6): [ ]a) Tissue necrosis [ ]b) Severe pain [ ]c) Acute pulselessness [ ]d) Other evidence of acute severe ischemia (eg, lactic acidosis , motor dysfunction) [ ]VII. Acute or newly diagnosed major vessel (eg, aorta) dissection, rupture, or leakage(5)(6)(22)(23) [ ]VIII.Vascular Disease and ALL of the following: [ ]a) Symptom or finding for which emergency and observation care have failed or are not considered appropriate (Use General Criteria: Observation Care as appropriate) [ ]b) Presence of ANY ONE of the following: [ ]i) A General Admission Criteria [ ]ii) A Pediatric General Admission Criteria The [facility] content created by [facility] has been revised. The portions of the content which have been revised are identified through the use of italic text or in bold, and [facility] has neither reviewed nor approved the modified material. All other unmodified content is copyright [facility]. Please see references footnoted in the original [facility] edition 2016 Admission Criteria Met?: Yes MIRNA ELLIS. Oct 18, 2016 17:55
[2016-10-18] MEDS ORDERED: LATANOPROST 0.005% OPHTH SOLUTION 2.5ML BOTTLE. OU SCH (21:00)
[2016-10-18] MEDS ORDERED: SIMVASTATIN 40 MG TABLET. PO SCH (21:00)
[2016-10-19 03:02] VITALS: BP 169/76
[2016-10-19 04:00] LABS: BASO % 0 % (0-3); EOS % 0 % (0-3); HEMATOCRIT 38.9 % (36.0-47.0); LYMPH # 1.1 x10^3/uL (1.0-4.8); LYMPH % 10 % (24-48); MEAN CORPUSCULAR HEMOGLOBIN 31 pg (25-35); MEAN CORPUSCULAR HGB CONC 33 g/dL (31-37); MEAN CORPUSCULAR VOLUME 94 fL (79-100); MONO % 9 % (0-9); NEUT % 81 % (31-73); PLATELET COUNT 245 x10^3/uL (140-400); RED BLOOD COUNT 4.13 x10^6/uL (3.50-5.40); RED CELL DISTRIBUTION WIDTH 13.8 % (11.5-14.5); WHITE BLOOD COUNT 11.1 x10^3/uL (4.0-11.0)
[2016-10-19 04:05] LABS: CALCIUM 8.6 mg/dL (8.5-10.1); CREATININE 0.9 mg/dL (0.6-1.0); GFR 60.7; POTASSIUM 3.8 mmol/L (3.5-5.1)
[2016-10-19] MEDS: hydrALAZINE 20 MG/ML VIAL. IVP PRN (04:26)
--- NOTE | 2016-10-19 06:46 | PDOC ---
Provider Note Provider Note AF VSS awake and alert right neck incision intact with no hematoma, drain removed neuro exam intact A/P POD#1 right CEA doing well - continue daily aspirin - regular diet - discharge home today if ok with medicine ANISHA GAINES MD Oct 19, 2016 06:46
[2016-10-19 07:00] VITALS: BP_SYST 150; BP_SYST 183; BP_DIAS 73; BP_DIAS 91
[2016-10-19] MEDS: ASPIRIN ENTERIC COATED 325 MG TABLET.DR. PO SCH (09:44)
[2016-10-19] MEDS: ATENOLOL 25 MG TABLET. PO SCH (09:44)
[2016-10-19] MEDS: DORZOLAMIDE/TIMOLOL 2%/0.5% OPHTH SOLUTION 10ML BOTTLE. OU SCH (09:44)
[2016-10-19 10:50] VITALS: BP 156/77
--- NOTE | 2016-10-19 12:28 | PDOC3 ---
Discharge Summary Visit Information Date of Admission: Oct 18, 2016 Date of Discharge: Oct 19, 2016 Brief Hospital Course Allergies Allergies Coded Allergies Type Severity Reaction Last Updated Verified loratadine Adverse Reaction Intermediate 10/18/16 Yes Uncoded Allergies Type Severity Reaction Last Updated Verified DIURETICS Adverse Reaction Intermediate 10/17/16 Vital Signs Vital Signs Date Time Temp Pulse Resp B/P (MAP) Pulse Ox O2 Delivery O2 Flow Rate FiO2 10/19/16 10:50 98.4 72 18 156/77 (103) 96 Room Air 98.4 10/18/16 12:00 2.0 Lab Results Laboratory Tests Test 10/18/16 10:30 10/19/16 02:50 Nasal Screen MRSA (PCR) Negative (Negative) White Blood Count 11.1 x10^3/uL (4.0-11.0) Red Blood Count 4.13 x10^6/uL (3.50-5.40) Hemoglobin 13.0 g/dL (12.0-15.5) Hematocrit 38.9 % (36.0-47.0) Mean Corpuscular Volume 94 fL (79-100) Mean Corpuscular Hemoglobin 31 pg (25-35) Mean Corpuscular Hemoglobin Concent 33 g/dL (31-37) Red Cell Distribution Width 13.8 % (11.5-14.5) Platelet Count 245 x10^3/uL (140-400) Neutrophils (%) (Auto) 81 % (31-73) Lymphocytes (%) (Auto) 10 % (24-48) Monocytes (%) (Auto) 9 % (0-9) Eosinophils (%) (Auto) 0 % (0-3) Basophils (%) (Auto) 0 % (0-3) Neutrophils # (Auto) 9.0 x10^3uL (1.8-7.7) Lymphocytes # (Auto) 1.1 x10^3/uL (1.0-4.8) Monocytes # (Auto) 1.0 x10^3/uL (0.0-1.1) Eosinophils # (Auto) 0.0 x10^3/uL (0.0-0.7) Basophils # (Auto) 0.0 x10^3/uL (0.0-0.2) Sodium Level 136 mmol/L (136-145) Potassium Level 3.8 mmol/L (3.5-5.1) Chloride Level 102 mmol/L (98-107) Carbon Dioxide Level 25 mmol/L (21-32) Anion Gap 9 (6-14) Blood Urea Nitrogen 21 mg/dL (7-20) Creatinine 0.9 mg/dL (0.6-1.0) Estimated GFR (Cockcroft-Gault) 60.7 Glucose Level 119 mg/dL (70-99) Calcium Level 8.6 mg/dL (8.5-10.1) Laboratory Tests Test 10/19/16 02:50 White Blood Count 11.1 x10^3/uL (4.0-11.0) Red Blood Count 4.13 x10^6/uL (3.50-5.40) Hemoglobin 13.0 g/dL (12.0-15.5) Hematocrit 38.9 % (36.0-47.0) Mean Corpuscular Volume 94 fL (79-100) Mean Corpuscular Hemoglobin 31 pg (25-35) Mean Corpuscular Hemoglobin Concent 33 g/dL (31-37) Red Cell Distribution Width 13.8 % (11.5-14.5) Platelet Count 245 x10^3/uL (140-400) Neutrophils (%) (Auto) 81 % (31-73) Lymphocytes (%) (Auto) 10 % (24-48) Monocytes (%) (Auto) 9 % (0-9) Eosinophils (%) (Auto) 0 % (0-3) Basophils (%) (Auto) 0 % (0-3) Neutrophils # (Auto) 9.0 x10^3uL (1.8-7.7) Lymphocytes # (Auto) 1.1 x10^3/uL (1.0-4.8) Monocytes # (Auto) 1.0 x10^3/uL (0.0-1.1) Eosinophils # (Auto) 0.0 x10^3/uL (0.0-0.7) Basophils # (Auto) 0.0 x10^3/uL (0.0-0.2) Sodium Level 136 mmol/L (136-145) Potassium Level 3.8 mmol/L (3.5-5.1) Chloride Level 102 mmol/L (98-107) Carbon Dioxide Level 25 mmol/L (21-32) Anion Gap 9 (6-14) Blood Urea Nitrogen 21 mg/dL (7-20) Creatinine 0.9 mg/dL (0.6-1.0) Estimated GFR (Cockcroft-Gault) 60.7 Glucose Level 119 mg/dL (70-99) Calcium Level 8.6 mg/dL (8.5-10.1) Brief Hospital Course Ms. Lynn is a 76 old [sex] who presented for scheduled carotid endarcterectomy R side. Spent overnight for OBS post op, no issues. DId well, Cleared from vasc sx and cards to go home I have seen pt and examined ff up Dr. Molina 2 weeks Discharge Information Condition at Discharge: Improved, Stable Follow Up: Weeks (2-4 weeks Vasc sx) Disposition/Orders: D/C to Home Scheduled Aspirin (Aspirin Ec), 81 MG PO DAILYWBKFT Atenolol (Atenolol), 25 MG PO DAILY, (Reported) Calcium Carbonate (Calcium), 1,000 MG PO DAILY, (Reported) Cholecalciferol (Vitamin D3) (Vitamin D3), 600 UNIT PO DAILY, (Reported) Dorzolamide Hcl/Timolol Maleat (Dorzolamide-Timolol Eye Drops), 1 DROP EACHEYE BID, (Reported) Latanoprost (Latanoprost), 1 DROP EACHEYE QHS, (Reported) Simvastatin (Simvastatin), 40 MG PO QHS Vitamin A/Vit C/Zinc/Propolis (Zinc 15 Mg Lozenges), 15 MG PO DAILY, (Reported) Miscellaneous Medications Magnesium Oxide (Magnesium), 400 MG PO, (Reported) Discontinued Medications Bromfenac Sodium (Prolensa), 1 DROP OS DAILY, (Reported) Prednisolone Acetate (Prednisolone Acetate), 1 DROP OS QID, (Reported) [Ciprofloxacin], 1 DROP OS QID, (Reported) ESTELLA WRAY MD Oct 19, 2016 12:28
== END 2016-10-19 12:30 | disposition home or self-care (01) | DRG 39 ==
LOC: OPSVCIP 05:37 → OBSVTOIN 05:37 → INTOOBSV 05:37 → 1 WEST ICU 10:05 → 2 NORTH 19:22
PROVIDERS: ADMIT Surgery Vascular Surgery; ATTEND Surgery Vascular Surgery
PROC: 03CK0ZZ Extirpation of Matter from Right Internal Carotid Artery, Open Approach (ICD-10-PCS; principal; 2016-10-18 07:30)
DX: I65.21 Occlusion and stenosis of right carotid artery (principal); I10 Essential (primary) hypertension; Z82.3 Family history of stroke; Z86.73 Personal history of transient ischemic attack (TIA), and cerebral infarction without residual deficits; Z90.49 Acquired absence of other specified parts of digestive tract; Z79.899 Other long term (current) drug therapy; Z88.8 Allergy status to other drugs, medicaments and biological substances; Z79.82 Long term (current) use of aspirin
CPT/HCPCS: 36415; 80048; 85027; 87641; 94250; 94760; J0360; J0690; J2250; J2405; J3010; J7030; J7040; J7120

== ENCOUNTER → 2017-11-14 | Outpatient (CLI) | payer BC | END | disposition home or self-care (01) | LOC: ECHO 07:35 | DX: I08.1 Rheumatic disorders of both mitral and tricuspid valves (principal); I27.20 Pulmonary hypertension, unspecified; I10 Essential (primary) hypertension; E78.5 Hyperlipidemia, unspecified | CPT/HCPCS: 93306 ==